=== PATIENT | male | born 1975 | race Caucasian/White ===

== ENCOUNTER 2021-10-21 11:53 | Emergency (ER) | payer OTHER ==
--- OUTSIDE RECORDS SUMMARY | 2021-10-21 11:56 | XMS REPORT | Continuity of Care Document ---
:1975 Author Organization [facility] t Address [address] [place] [address] Care Team Providers Name Role Phone [place] Attending Clinician Unavailable Problems This patient has no known problems. Allergies, Adverse Reactions, Alerts This patient has no known allergies or adverse reactions. Medications Ordered Filled Start Stop Current Ordering Indication Dosage Frequency Signature Comments Components Source Medication Medication Date Date Medication? Clinician (SIG) Name Name BuPROPion BuPROPion 2019- Yes Starr [address] [facility] HCl HCl 0-08 [place] [facility] [address] [facility] ne ne 7-11 [place] applicatio [facility] - Acetonide Acetonide 00:00: n to Mem oria 00 affected l area [facility] Furosemide Furosemide Yes Starr [address] [facility] [place] [facility] Metoprolol Metoprolol Yes Starr [address] [facility] Tartrate Tartrate [place] with food [facility] Levothyroxi Levothyroxi Yes Starr [address] [facility] ne Sodium ne Sodium [place] on an Ava es - empty Memoria stomach in l the [facility] Procedures This patient has no known procedures. Encounters Start End Encounter Admission Attending Care Care Encounter Source Date/Time Date/Time Type Type Clinicians Facility Department ID 2021-08-26 Outpatient SALLY Valladares [facility] [id number] [facility] 13[facility]01 [facility] 2021-06-14 2021-06-14 ambulatory [facility] [id number] [facility] 2020-12-09 2020-12-09 Outpatient [facility] [id number] [facility] 2020-03-27 2020-03-27 [facility] [id number] [facility] 08:20:00 08:20:00 [facility] 2019-11-19 2019-11-19 [facility] [id number] [facility] 13:00:00 13:00:00 [facility] 2019-09-19 2019-09-19 [facility] [id number] [facility] 09:41:00 09:41:00 [facility] 2019-09-18 2019-09-18 [facility] [id number] [facility] 10:40:00 10:40:00 [facility] 2019-06-18 2019-06-18 [facility] [id number] [facility] 14:00:00 14:00:00 [facility] 2019-04-23 2019-04-23 [facility] [id number] [facility] 09:40:00 09:40:00 [facility] 2019-03-08 2019-03-08 [facility] [id number] [facility] 13:32:00 13:32:00 [facility] 2019-03-07 2019-03-07 [facility] [id number] [facility] 08:40:00 08:40:00 [facility] 2019-01-24 2019-01-24 Outpatient Kasey Toney [id number] [facility] 14:20:00 14:20:00 [facility] 2018-06-19 2018-06-19 Outpatient Kasey Toney [id number] [facility] 13:10:00 13:10:00 [facility] Results This patient has no known results.
[2021-10-21] MEDS ORDERED: FENTANYL CITR 100 MCG/2 ML ONE (12:45)
[2021-10-21 13:02] LABS: Absolute Lymphocytes (CBC) 1.3 K/uL (0.7-4.9); Hematocrit 44.2 % (39.6-49.0); Lymphocytes % 15.8 % (15.3-44.8); MPV 7.6 fL (7.6-11.3); RBC Red Blood Cell Count 5.36 M/uL (4.33-5.43)
[2021-10-21 13:12] LABS: Protime INR 1.16
--- NOTE | 2021-10-21 13:45 | RAD REPORT ---
EXAM DESCRIPTION: RAD - Chest Single View - 10/21/2021 1:38 pm CLINICAL HISTORY: SWELLING, shortness of breath COMPARISON: Portable December 2013 TECHNIQUE: AP portable chest image was obtained 10/21/2021 1:38 pm . FINDINGS: Exam is limited by affects of portable technique and large body habitus. No peripheral mass or consolidation identifiable. Interstitial markings are prominent. Cardiomegaly i s present with vascular engorgement, both increased over comparison. No measurable pleural effusion a nd no pneumothorax. No acute bony abnormality seen. No acute aortic findings suspected. IMPRESSION: Limited portable study showing mild CHF/volume overload findings.
[2021-10-21 14:06] LABS: Potassium 4.4 mmol/L (3.5-5.1)
[2021-10-21 14:07] LABS: Bilirubin Direct 0.2 mg/dL (0-0.2); Bilirubin Total 0.7 mg/dL (0.2-1.0); Magnesium 2.2 mg/dL (1.8-2.4); Protein, Total 8.8 g/dL (6.4-8.2)
--- NOTE | 2021-10-21 15:15 | RAD REPORT ---
EXAM DESCRIPTION: US - Extrem Venous W Compress Burke - 10/21/2021 2:50 pm CLINICAL HISTORY: PAIN COMPARISON: None. TECHNIQUE: Real-time sonographic evaluation of the bilateral lower extremity common femoral, superfi cial femoral, popliteal and posterior tibial veins was performed. FINDINGS: Normal compressibility, flow augmentation, phasic flow and spontaneous flow are identified in the left and right lower extremity common femoral, superficial femoral, popliteal and posterior t ibial veins. No intraluminal filling defects seen. Exam at technical limitation due to body habitus. IMPRESSION: No DVT in either lower extremity.
[2021-10-21] MEDS ORDERED: DOXYCYCLINE 100 MG CAP PO ONE (16:16)
[2021-10-21] MEDS ORDERED: SMZ./TMP. 800/160 MG TABLET ONE (16:16)
--- NOTE | 2021-10-21 16:41 | EDPHYS ---
Physician Documentation [facility] Name: Eliseo Larson Jr Age: 46 yrs Sex: Male : 1975 Arrival Date: 10/21/2021 Time: 11:54 Bed 5 Private MD: ED Physician Yordan Villeda HPI: 10/21 12:45 This 46 yrs old Male presents to ER via Wheelchair with complaints of Leg Pain, Leg cp Swelling. 12:45 The patient presents with pain, swelling. cp 12:45 The complaints affect the left lower leg. Onset: The symptoms/episode began/occurred cp gradually, and became worse yesterday. Associated signs and symptoms: Pertinent positives: drainage from leg, Pertinent negatives fever, shortness of breath, chest pain. Treatment prior to arrival includes: no previous treatment. Severity of symptoms: in the emergency department the symptoms are unchanged, despite home interventions. Historical: - Allergies: 12:17 No Known Allergies; ab2 - PMHx: 12:17 Hypertensive disorder; Congestive heart failure; Hypothyroidism; ab2 - PSHx: 12:17 Tracheostomy; ab2 - Immunization history:: Adult Immunizations up to date. - Social history:: Smoking status: Patient denies any tobacco usage or history of. ROS: 12:50 MS/extremity: Positive for pain, swelling, tenderness, Negative for injury or acute cp deformity. 12:50 Constitutional: Negative for body aches, chills, fever, poor PO intake. cp 12:50 Cardiovascular: Negative for chest pain, edema, palpitations. 12:50 Respiratory: Negative for cough, shortness of breath, wheezing. 12:50 Abdomen/GI: Negative for abdominal pain, nausea, vomiting, and diarrhea. 12:50 Neuro: Negative for altered mental status, headache, weakness. 12:50 All other systems are negative. Exam: 12:55 Constitutional: The patient appears in no acute distress, alert, awake, cp non-diaphoretic, non-toxic, well developed, well nourished, obese. 12:55 Head/Face: Normocephalic, atraumatic. cp 12:55 Eyes: Periorbital structures: appear normal, Conjunctiva: normal, no exudate, no injection, Sclera: no appreciated abnormality, Lids and lashes: appear normal, bilaterally. 12:55 ENT: External ear(s): are unremarkable, Nose: is normal, Mouth: Lips: moist, Oral mucosa: moist, Posterior pharynx: Airway: no evidence of obstruction, patent. 12:55 Chest/axilla: Inspection: normal. 12:55 Cardiovascular: Rate: normal, Rhythm: regular, Edema: pedal edema, that is moderate, ankle edema, that is moderate, JVD: is not appreciated. 12:55 Respiratory: the patient does not display signs of respiratory distress, Respirations: normal, no use of accessory muscles, no retractions, labored breathing, is not present, Breath sounds: bronchial sounds, are not appreciated, decreased breath sounds, are not appreciated, wheezing: is not appreciated. 12:55 Abdomen/GI: Exam negative for discomfort, distension, guarding, Inspection: obese 12:55 Musculoskeletal/extremity: swelling noted bilateral lower legs. 12:55 Skin: skin discoloration, mild erythema, skin warm to touch left lower leg. Serosanguinous drainage noted with superficial wound noted to lateral lower leg. 12:55 Neuro: Orientation: to person, place \\T\\ time. Mentation: is normal, Motor: moves all fours, strength is normal, Gait: is steady, at a normal pace, without difficulty. 13:00 ECG was reviewed by the Attending Physician. cp Vital Signs: 12:15 BP 144 / 88; Pulse 68; Resp 22; Temp 98.5; Pulse Ox 98% on R/A; Weight 226.8 kg; Height ab2 6 ft. 2 in. (187.96 cm); Pain 8/10; 14:47 Pulse 71; Pulse Ox 97% on R/A; ap3 14:54 BP 124 / 72; ap3 12:15 Body Mass Index 64.20 (226.80 kg, 187.96 cm) ab2 MDM: 12:36 Patient medically screened. cp 16:40 Data reviewed: vital signs, nurses notes, lab test result(s), EKG, radiologic studies, cp plain films, ultrasound. 16:40 Test interpretation: by ED physician or midlevel provider: ECG, plain radiologic cp studies. Counseling: I had a detailed discussion with the patient and/or guardian regarding: the historical points, exam findings, and any diagnostic results supporting the discharge/admit diagnosis, lab results, radiology results, the need for outpatient follow up, for definitive care, a family practitioner, wound care, to return to the emergency department if symptoms worsen or persist or if there are any questions or concerns that arise at home. Response to treatment: the patient's symptoms have mildly improved after treatment, and as a result, I will discharge patient. ED course: VSS. Patient appears non-toxic and no signs of respiratory distress. Wound Care consulted and lower legs cleaned and dressed. 10/21 12:39 Order name: Basic Metabolic Panel; Complete Time: 14:21 cp 10/21 14:21 Interpretation: Normal except: BUN 21; GFR 68; CA 8.2. cp 10/21 12:39 Order name: CBC with Diff; Complete Time: 13:51 cp 10/21 13:51 Interpretation: Normal except: MCV 82.5; MCH 25.9; MCHC 31.3; RDW 17.0; EOSINOPHIL % cp 5.4. 10/21 12:39 Order name: LFT's; Complete Time: 14:21 cp 10/21 14:21 Interpretation: Normal except: TP 8.8; ALB 3.0; GLOB 5.8; A/G 0.5. cp 10/21 12:39 Order name: Magnesium; Complete Time: 14:21 cp 10/21 12:39 Order name: NT PRO-BNP; Complete Time: 14:21 cp 10/21 12:39 Order name: PT-INR; Complete Time: 13:51 cp 10/21 12:39 Order name: XRAY Chest (1 view); Complete Time: 13:51 cp 10/21 12:39 Order name: Procalcitonin; Complete Time: 14:21 cp 10/21 12:52 Order name: COVID-19 SARS RT PCR (Document "Date of Onset" if Symptomatic); Complete em1 Time: 14:21 10/21 13:52 Order name: US Extremity Venous W Compression Burke; Complete Time: 15:43 cp 10/21 12:39 Order name: EKG; Complete Time: 12:40 cp 10/21 12:39 Order name: Cardiac monitoring; Complete Time: 12:52 cp 10/21 12:39 Order name: EKG - Nurse/Tech; Complete Time: 12:53 cp 10/21 12:39 Order name: IV Saline Lock; Complete Time: 12:53 cp 10/21 12:39 Order name: Labs collected and sent; Complete Time: 12:53 cp 10/21 12:39 Order name: O2 Per Protocol; Complete Time: 12:53 cp 10/21 12:39 Order name: O2 Sat Monitoring; Complete Time: 12:53 cp 10/21 14:54 Order name: [facility] EDMS EC:00 Rate is 66 beats/min. Rhythm is regular. NH interval is normal. QRS interval is cp prolonged at 104 msec. QT interval is normal. T waves are Inverted in lead aVR. Interpreted by me. Reviewed by me. Administered Medications: 12:53 Drug: fentaNYL (PF) 25 mcg Route: IVP; Site: right antecubital; jl7 14:40 Follow up: Response: No adverse reaction ap3 14:46 Drug: Lasix (furosemide) 40 mg Route: IVP; Site: right antecubital; ap3 16:18 Follow up: Response: No adverse reaction ap3 16:18 Drug: Bactrim (trimethoprim-sulfamethoxazole) (160 mg-800 mg (DS) 2 tabs Route: PO; ap3 16:30 Follow up: Response: Medication administered at discharge. jl7 16:18 Drug: Doxycycline 200 mg Route: PO; ap3 16:30 Follow up: Response: Medication administered at discharge. jl7 Disposition: 17:11 Co-signature as Attending Physician, Yordan Villeda MD I agree with the assessment and kdr plan of care. Disposition Summary: 10/21/21 16:41 Discharge Ordered Location: Home cp Problem: new cp Symptoms: have improved cp Condition: Stable cp Diagnosis - Lymphedema, not elsewhere classified cp - Cellulitis of left lower limb cp Followup: cp - With: Private Physician - When: 1 - 2 days - Reason: Recheck today's complaints Discharge Instructions: - Discharge Summary Sheet cp - Cellulitis, Adult cp - Lymphedema cp Forms: - Medication Reconciliation Form cp - Thank You Letter cp - Antibiotic Education cp - Prescription Opioid Use cp Prescriptions: - Doxycycline Hyclate 100 mg Oral Tablet - take 1 tablet by ORAL route every 12 hours; 20 tablet; Refills: 0, Product cp Selection Permitted - Bactrim DS 800-160 mg Oral Tablet - take 1 tablet by ORAL route every 12 hours for 10 days; 20 tablet; Refills: 0, cp Product Selection Permitted - Tylenol-Codeine #3 300 mg-30 mg Oral - take 2 tablet by ORAL route every 8-10 hours As needed; 15 tablet; Refills: 0, cp Product Selection Permitted Signatures: Dispatcher [employer] Yordan Dove MD MD kdr Page, Corey, PA PA cp Leal, Jahala RN RN jl7 Eboni Joyner RN RN ap3 Dirk Bolaños ab2 Corrections: (The following items were deleted from the chart) 12:19 12:17 PSHx: Tracheotomy; ab2 ab2
--- NOTE | 2021-10-21 16:41 | ER ---
Nurse's Notes [facility] Name: Eliseo Larson Jr Age: 46 yrs Sex: Male : 1975 Arrival Date: 10/21/2021 Time: 11:54 Bed 5 Private MD: Diagnosis: Lymphedema, not elsewhere classified;Cellulitis of left lower limb Presentation: 10/21 12:15 Chief complaint: Patient states: "I noticed my left leg had been swelling for a couple ab2 weeks and yesterday I was in the shower and noticed some bumps. Well today I was sitting there and noticed my pant legs were soaked." Pt has draining wound noted to left scott. Coronavirus screen: Vaccine status: Patient reports being unvaccinated. Client denies travel out of the [place] in the last 14 days. At this time, the client does not indicate any symptoms associated with coronavirus-19. Ebola Screen: Patient negative for fever greater than or equal to 101.5 degrees Fahrenheit, and additional compatible Ebola Virus Disease symptoms Patient denies exposure to infectious person. Patient denies travel to an Ebola-affected area in the 21 days before illness onset. No symptoms or risks identified at this time. Initial Sepsis Screen: Does the patient meet any 2 criteria? RR > 20 per min. Does the patient have a suspected source of infection? No. Patient's initial sepsis screen is negative. Risk Assessment: Do you want to hurt yourself or someone else? Patient reports no desire to harm self or others. Onset of symptoms is unknown. 12:15 Method Of Arrival: Wheelchair ab2 12:15 Acuity: JUNG 3 ab2 Triage Assessment: 12:19 General: Appears in no apparent distress. uncomfortable, Behavior is calm, cooperative, ab2 appropriate for age. Pain: Complains of pain in left scott Pain currently is 8 out of 10 on a pain scale. 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 Respiratory: Airway via trache Respiratory effort is even, unlabored, Respiratory pattern is regular, symmetrical. GI: No deficits noted. Derm: Reports Wound to left scott. Historical: - Allergies: 12:17 No Known Allergies; ab2 - PMHx: 12:17 Hypertensive disorder; Congestive heart failure; Hypothyroidism; ab2 - PSHx: 12:17 Tracheostomy; ab2 - Immunization history:: Adult Immunizations up to date. - Social history:: Smoking status: Patient denies any tobacco usage or history of. Screenin:45 Abuse screen: Denies threats or abuse. Denies injuries from another. Nutritional jl7 screening: No deficits noted. Tuberculosis screening: No symptoms or risk factors identified. Fall Risk IV access (20 points). Assessment: 12:45 General: Appears in no apparent distress. uncomfortable, Behavior is calm, cooperative, jl7 appropriate for age. Pain: Complains of pain in left leg Pain currently is 8 out of 10 on a pain scale. Pain began x2 weeks. Neuro: Level of Consciousness is awake, alert, obeys commands, Oriented to person, place, time, situation. Cardiovascular: Denies chest pain, Patient's skin is warm and dry. Respiratory: Airway is patent Respiratory effort is even, unlabored, Respiratory pattern is regular, symmetrical, Denies shortness of breath. Derm: Skin is pink, warm \\T\\ dry. Musculoskeletal: redness and swelling noted to bilateral lower extremities. 14:46 Reassessment: Patient and/or family updated on plan of care and expected duration. Pain ap3 level reassessed. Patient is alert, oriented x 3, equal unlabored respirations, skin warm/dry/pink. patient in bed, bed is locked in lowest position, side rails up X's one. patient provided with urinal to limit risk of falls. patient has call light within reach, and reports no questions or concerns at this time. Vital Signs: 12:15 BP 144 / 88; Pulse 68; Resp 22; Temp 98.5; Pulse Ox 98% on R/A; Weight 226.8 kg; Height ab2 6 ft. 2 in. (187.96 cm); Pain 8/10; 14:47 Pulse 71; Pulse Ox 97% on R/A; ap3 14:54 BP 124 / 72; ap3 12:15 Body Mass Index 64.20 (226.80 kg, 187.96 cm) ab2 ED Course: 11:54 Patient arrived in ED. as 12:17 Triage completed. ab2 12:21 Arm band placed on right wrist. ab2 12:31 Bubba Ruggiero PA is PHCP. cp 12:31 Yordan Villeda MD is Attending Physician. cp 12:32 Swapnil San, RN is Primary Nurse. jl7 12:44 Inserted saline lock: 20 gauge in right antecubital area, using aseptic technique. ap3 Blood collected. 12:45 Patient has correct armband on for positive identification. Bed in low position. Call jl7 light in reach. Side rails up X 1. 12:45 Initial lab(s) drawn, by ED staff, sent to lab. EKG done, by ED staff, reviewed by gabriel BORJAS. 13:09 COVID-19 SARS RT PCR (Document "Date of Onset" if Symptomatic) Sent. em1 13:40 XRAY Chest (1 view) In Process Unspecified. EDMS 14:52 US Extremity Venous W Compression Burke In Process Unspecified. EDMS 17:08 No provider procedures requiring assistance completed. IV discontinued, intact, ss bleeding controlled, No redness/swelling at site. Administered Medications: 12:53 Drug: fentaNYL (PF) 25 mcg Route: IVP; Site: right antecubital; jl7 14:40 Follow up: Response: No adverse reaction ap3 14:46 Drug: Lasix (furosemide) 40 mg Route: IVP; Site: right antecubital; ap3 16:18 Follow up: Response: No adverse reaction ap3 16:18 Drug: Bactrim (trimethoprim-sulfamethoxazole) (160 mg-800 mg (DS) 2 tabs Route: PO; ap3 16:30 Follow up: Response: Medication administered at discharge. jl7 16:18 Drug: Doxycycline 200 mg Route: PO; ap3 16:30 Follow up: Response: Medication administered at discharge. jl7 Outcome: 16:41 Discharge ordered by . cp 17:08 Discharged to home ambulatory. ss 17:08 Condition: good 17:08 Discharge instructions given to patient, family, Instructed on discharge instructions, follow up and referral plans. medication usage, Demonstrated understanding of instructions, follow-up care, medications, Prescriptions given X 3. 17:09 Patient left the ED. ss Signatures: Dispatcher [employer] EDMS Yi Basilio Eric em1 Jessie Savage RN RN Bubba Ruggiero PA PA cp Leal, Jahala, RN RN jl7 Eboni Joyner RN RN ap3 Dirk Bolaños ab2 Corrections: (The following items were deleted from the chart) 19 12:17 PSHx: Tracheotomy; ab2 ab2
[2021-10-21 20:57] VITALS: TEMP 98.5
[2021-10-21 20:58] VITALS: O2SAT 97
[2021-10-21 20:59] VITALS: BP 124/72
--- NOTE | 2021-10-22 07:47 | EKG ---
Test Date: 2021-10-21 Test Time: 12:50:05 Director Stage: YOANA MEASUREMENT RESULTS: Intervals: Rate: 66 FL: 178 QRSD: 104 QT: 458 QTc: 480 [place]: P: 39 FL: 178 QRS: 75 T: 47 INTERPRETIVE STATEMENTS: Normal sinus rhythm Incomplete right bundle branch block Prolonged QT Abnormal ECG Compared to ECG 08/22/2013 12:47:50 Right ventricular hypertrophy no longer present ST (T wave) deviation no longer present Electronically Signed On 10-22-21 07:46:07 CDT by Darian Castillo
== END 2021-10-21 17:09 | disposition home or self-care (01) ==
LOC: ER 11:53
DX: L03.116 Cellulitis of left lower limb (principal); I89.0 Lymphedema, not elsewhere classified; I50.9 Heart failure, unspecified; I10 Essential (primary) hypertension; Z20.822 Contact with and (suspected) exposure to COVID-19
CPT/HCPCS: 93005; 85025; 80048; 36415; 83735; 85610; 80076; 84145; 83880; 71045; 93970; 99251; 96375; 96374; 99284; U0003; J3010

== ENCOUNTER 2023-08-06 21:30 | Inpatient (IN) | payer OTHER ==
--- OUTSIDE RECORDS SUMMARY | 2023-08-06 21:35 | XMS REPORT | Continuity of Care Document ---
Author Name Unknown Address [address] [facility] [place] [address] [facility] thconnect Address [address] [facility] [address] [place] [address] Care Team Providers Care Seafood Packer Name Role Phone Starr Valladares Attending Clinician Unavailable CHRETIEN_F Attending Clinician Unavailable CHRETIEN_F Admitting Clinician Unavailable Payers Payer Name Policy Type Policy Number Effective Date Expirati on Date Source MEDICARE [place]: TOMASZ ALLEN [facility] - FQ [id number] 2015 00:00:00 [facility] [id number] 2015 00:00:00 [facility] [id number] 2015 00:00:00 [facility] Problems Condition Name Condition Details Condition Category Status Onset Date Resolution Date Last Treatment Date Treating Clinician Comments Source Vitamin D deficiency Vitamin D Deficiency Problem Active 02-20 00:00: 00 [facility] Essential hypertensi on Essential Hypertensi on Problem Active 01-31 00:00: 00 [facility] Cardiac arrhythmia Cardiac Arrhythmia Problem Active 01-31 00:00: 00 [facility] Edema of lower extremity Edema of Lower Extremity Problem Active 01-31 00:00: 00 [facility] Hypothyroi dism Hypothyroi dism Problem Active 01-31 00:00: 00 [facility] Anxiety disorder Anxiety Disorder Problem Active 01-31 00:00: 00 [facility] Depressive disorder Depressive Disorder Problem Active 01-31 00:00: 00 [facility] Central sleep apnea syndrome Central Sleep Apnea Syndrome Problem Active 01-31 00:00: 00 [facility] History of tracheosto my Tracheosto my dependent Problem Active [facility] [id number] Psoriasis Problem Active Commo n [facility] [id number] Current moderate episode of major depressive disorder without prior episode Problem Active [facility] [id number] Tracheosto my dependence Problem Active [facility] Extreme obesity with alveolar hypoventil ation Morbid (severe) obesity with alveolar hypoventil ation Problem Active [facility] Chronic diastolic heart failure Diastolic CHF Problem Active [facility] Obstructiv e sleep apnea Obstructiv e sleep apnea Problem Active [facility] [id number] Non-pressu re chronic ulcer of unspecifie d part of unspecifie d lower leg with unspecifie d severity Problem Active [facility] [id number] Peripheral vascular disease, unspecifie d Problem Active [facility] [id number] Lymphatic edema Problem Active [facility] Social History Social Habit Start Date Stop Date Quantity Comments Source History of Tobacco Use [facility] Sex Assigned At [facility] Smoking Status Start Date Stop Date Source Never Smoker [facility] Medications Ordered Medication Name Filled Medication Name Start Date Stop Date Current Medication? Ordering Clinician Indication Dosage Frequency Signature (SIG) Comments Components Source metoprolol tartrate 50 mg tablet TAKE 1 TABLET BY MOUTH TWICE DAILY metoprolol tartrate 50 mg tablet TAKE 1 TABLET BY MOUTH TWICE DAILY 02-20 00:00: 00 No metoprolol tartrate 50 mg tablet TAKE 1 TABLET BY MOUTH TWICE DAILY [facility] Betamethaso ne Dipropionat e 0.05 % Betamethaso ne Dipropionat e 0.05 % 2020-07 00:00: 00 08-29 00:00 :00 No 1{appli cation} QD Betamethas one Dipropiona te 0.05 % BuPROPion HCl BuPROPion HCl 2018-07 00:00: 00 Yes Starr [place] 2 tablets [facility] BuPROPion HCl 100 MG BuPROPion HCl 100 MG 2018-07 00:00: 00 No 2{table ts} BID BuPROPion HCl 100 MG Triamcinolo ne Acetonide Triamcinolo ne Acetonide 01-24 00:00: 00 Yes Starr [place] 1 applicatio n to affected area [facility] Triamcinolo ne Acetonide 0.1 % Triamcinolo ne Acetonide 0.1 % 01-24 00:00: 00 No 1{appli cation_ to_affe cted_ar ea} BID Triamcinol one Acetonide 0.1 % spironolact one 50 mg tablet TAKE 1 TABLET BY MOUTH ONCE DAILY spironolact one 50 mg tablet TAKE 1 TABLET BY MOUTH ONCE DAILY No spironolac tone 50 mg tablet TAKE 1 TABLET BY MOUTH ONCE DAILY [facility] furosemide 40 mg tablet Take 1 tablet twice a day by oral route as directed for 30 days. furosemide 40 mg tablet Take 1 tablet twice a day by oral route as directed for 30 days. No 1 BID furosemide 40 mg tablet Take 1 tablet twice a day by oral route as directed for [address] [facility] levothyroxi ne 175 mcg tablet Take 1 tablet every day by oral route for 30 days. levothyroxi ne 175 mcg tablet Take 1 tablet every day by oral route for 30 days. No 1 Q1D levothyrox ine 175 mcg tablet Take 1 tablet every day by oral route for [address] [facility] metoprolol tartrate 50 mg tablet Take 1 tablet twice a day by oral route for 30 days. metoprolol tartrate 50 mg tablet Take 1 tablet twice a day by oral route for 30 days. No 1 BID metoprolol tartrate 50 mg tablet Take 1 tablet twice a day by oral route for [address] [facility] spironolact one 50 mg tablet Take 1 tablet every day by oral route for 30 days. spironolact one 50 mg tablet Take 1 tablet every day by oral route for 30 days. No 1 Q1D spironolac tone 50 mg tablet Take 1 tablet every day by oral route for [address] [facility] Furosemide Furosemide Yes Starr [place] 2 tablets [facility] Metoprolol Tartrate Metoprolol Tartrate Yes [place] 1 tablet with food [facility] Levothyroxi ne Sodium Levothyroxi ne Sodium Yes [place] 1 tablet on an empty stomach in the morning [facility] Levothyroxi ne Sodium 150 MCG Levothyroxi ne Sodium 150 MCG No Levothyrox ine Sodium 150 MCG Furosemide 40 MG Furosemide 40 MG No QD Furosemide 40 MG Metoprolol Tartrate 50 MG Metoprolol Tartrate 50 MG No 1{table t_with_ food} BID Metoprolol Tartrate 50 MG buPROPion HCl 100 MG buPROPion HCl 100 MG No buPROPion HCl 100 MG Spironolact one 50 MG Spironolact one 50 MG No 1{table t} QD Spironolac tone 50 MG Levothyroxi ne Sodium 150 MCG Levothyroxi ne Sodium 150 MCG No Levothyrox ine Sodium 150 MCG Furosemide 40 MG Furosemide 40 MG No QD Furosemide 40 MG Metoprolol Tartrate 50 MG Metoprolol Tartrate 50 MG No 1{table t_with_ food} BID Metoprolol Tartrate 50 MG buPROPion HCl 100 MG buPROPion HCl 100 MG No buPROPion HCl 100 MG Spironolact one 50 MG Spironolact one 50 MG No 1{table t} QD Spironolac tone 50 MG Metoprolol Tartrate 50 MG Metoprolol Tartrate 50 MG No Metoprolol Tartrate 50 MG Levothyroxi ne Sodium 125 MCG Levothyroxi ne Sodium 125 MCG No QD Levothyrox ine Sodium 125 MCG Spironolact one 50 MG Spironolact one 50 MG No Spironolac tone 50 MG Furosemide 40 MG Furosemide 40 MG No 2{table ts} QD Furosemide 40 MG Furosemide 40 MG Furosemide 40 MG No QD Furosemide 40 MG Levothyroxi ne Sodium 137 MCG Levothyroxi ne Sodium 137 MCG No QD Levothyrox ine Sodium 137 MCG Spironolact one 50 MG Spironolact one 50 MG No 1{table t} QD Spironolac tone 50 MG Metoprolol Tartrate 50 MG Metoprolol Tartrate 50 MG No BID Metoprolol Tartrate 50 MG buPROPion HCl 100 MG buPROPion HCl 100 MG No buPROPion HCl 100 MG Spironolact one 50 MG Spironolact one 50 MG No 1{table t} QD Spironolac tone 50 MG Levothyroxi ne Sodium 137 MCG Levothyroxi ne Sodium 137 MCG No QD Levothyrox ine Sodium 137 MCG Metoprolol Tartrate 50 MG Metoprolol Tartrate 50 MG No BID Metoprolol Tartrate 50 MG buPROPion HCl 100 MG buPROPion HCl 100 MG No buPROPion HCl 100 MG Furosemide 40 MG Furosemide 40 MG No QD Furosemide 40 MG Spironolact one 50 MG Spironolact one 50 MG No 1{table t} QD Spironolac tone 50 MG Levothyroxi ne Sodium 137 MCG Levothyroxi ne Sodium 137 MCG No QD Levothyrox ine Sodium 137 MCG Metoprolol Tartrate 50 MG Metoprolol Tartrate 50 MG No BID Metoprolol Tartrate 50 MG buPROPion HCl 100 MG buPROPion HCl 100 MG No buPROPion HCl 100 MG Furosemide 40 MG Furosemide 40 MG No QD Furosemide 40 MG Spironolact one 50 MG Spironolact one 50 MG No 1{table t} QD Spironolac tone 50 MG Levothyroxi ne Sodium 137 MCG Levothyroxi ne Sodium 137 MCG No QD Levothyrox ine Sodium 137 MCG Metoprolol Tartrate 50 MG Metoprolol Tartrate 50 MG No BID Metoprolol Tartrate 50 MG buPROPion HCl 100 MG buPROPion HCl 100 MG No buPROPion HCl 100 MG Furosemide 40 MG Furosemide 40 MG No QD Furosemide 40 MG Spironolact one 50 MG Spironolact one 50 MG No 1{table t} QD Spironolac tone 50 MG Levothyroxi ne Sodium 137 MCG Levothyroxi ne Sodium 137 MCG No QD Levothyrox ine Sodium 137 MCG Metoprolol Tartrate 50 MG Metoprolol Tartrate 50 MG No BID Metoprolol Tartrate 50 MG buPROPion HCl 100 MG buPROPion HCl 100 MG No buPROPion HCl 100 MG Furosemide 40 MG Furosemide 40 MG No QD Furosemide 40 MG Spironolact one 50 MG Spironolact one 50 MG No 1{table t} QD Spironolac tone 50 MG Furosemide 40 MG Furosemide 40 MG No QD Furosemide 40 MG Metoprolol Tartrate 50 MG Metoprolol Tartrate 50 MG No BID Metoprolol Tartrate 50 MG buPROPion HCl 100 MG buPROPion HCl 100 MG No buPROPion HCl 100 MG Levothyroxi ne Sodium 150 MCG Levothyroxi ne Sodium 150 MCG No QD Levothyrox ine Sodium 150 MCG Levothyroxi ne Sodium 150 MCG Levothyroxi ne Sodium 150 MCG No Levothyrox ine Sodium 150 MCG Furosemide 40 MG Furosemide 40 MG No QD Furosemide 40 MG Metoprolol Tartrate 50 MG Metoprolol Tartrate 50 MG No 1{table t_with_ food} BID Metoprolol Tartrate 50 MG buPROPion HCl 100 MG buPROPion HCl 100 MG No buPROPion HCl 100 MG Spironolact one 50 MG Spironolact one 50 MG No 1{table t} QD Spironolac tone 50 MG furosemide 40 mg tablet Take 1 tablet twice a day by oral route as directed for 30 days. furosemide 40 mg tablet Take 1 tablet twice a day by oral route as directed for 30 days. No 1 BID furosemide 40 mg tablet Take 1 tablet twice a day by oral route as directed for [address] [facility] levothyroxi ne 150 mcg tablet Take 1 tablet every day by oral route. levothyroxi ne 150 mcg tablet Take 1 tablet every day by oral route. No 1 Q1D levothyrox ine 150 mcg tablet Take 1 tablet every day by oral route. [facility] metoprolol tartrate 50 mg tablet Take 1 tablet twice a day by oral route for 30 days. metoprolol tartrate 50 mg tablet Take 1 tablet twice a day by oral route for 30 days. No 1 BID metoprolol tartrate 50 mg tablet Take 1 tablet twice a day by oral route for [address] [facility] spironolact one 50 mg tablet Take 1 tablet every day by oral route for 30 days. spironolact one 50 mg tablet Take 1 tablet every day by oral route for 30 days. No 1 Q1D spironolac tone 50 mg tablet Take 1 tablet every day by oral route for [address] [facility] furosemide 40 mg tablet Take 1 tablet twice a day by oral route as directed for 30 days. furosemide 40 mg tablet Take 1 tablet twice a day by oral route as directed for 30 days. No 1 BID furosemide 40 mg tablet Take 1 tablet twice a day by oral route as directed for [address] [facility] levothyroxi ne 150 mcg tablet Take 1 tablet every day by oral route. levothyroxi ne 150 mcg tablet Take 1 tablet every day by oral route. No 1 Q1D levothyrox ine 150 mcg tablet Take 1 tablet every day by oral route. [facility] metoprolol tartrate 50 mg tablet Take 1 tablet twice a day by oral route for 30 days. metoprolol tartrate 50 mg tablet Take 1 tablet twice a day by oral route for 30 days. No 1 BID metoprolol tartrate 50 mg tablet Take 1 tablet twice a day by oral route for [address] [facility] spironolact one 50 mg tablet Take 1 tablet every day by oral route for 30 days. spironolact one 50 mg tablet Take 1 tablet every day by oral route for 30 days. No 1 Q1D spironolac tone 50 mg tablet Take 1 tablet every day by oral route for [address] [facility] furosemide 40 mg tablet Take 1 tablet twice a day by oral route as directed for 30 days. furosemide 40 mg tablet Take 1 tablet twice a day by oral route as directed for 30 days. No 1 BID furosemide 40 mg tablet Take 1 tablet twice a day by oral route as directed for [address] [facility] levothyroxi ne 150 mcg tablet Take 1 tablet every day by oral route. levothyroxi ne 150 mcg tablet Take 1 tablet every day by oral route. No 1 Q1D levothyrox ine 150 mcg tablet Take 1 tablet every day by oral route. [facility] metoprolol tartrate 50 mg tablet Take 1 tablet twice a day by oral route for 30 days. metoprolol tartrate 50 mg tablet Take 1 tablet twice a day by oral route for 30 days. No 1 BID metoprolol tartrate 50 mg tablet Take 1 tablet twice a day by oral route for [address] [facility] spironolact one 50 mg tablet Take 1 tablet every day by oral route for 30 days. spironolact one 50 mg tablet Take 1 tablet every day by oral route for 30 days. No 1 Q1D spironolac tone 50 mg tablet Take 1 tablet every day by oral route for [address] [facility] furosemide 40 mg tablet TAKE 1 TABLET BY MOUTH TWICE DAILY DIRECTED furosemide 40 mg tablet TAKE 1 TABLET BY MOUTH TWICE DAILY DIRECTED No furosemide 40 mg tablet TAKE 1 TABLET BY MOUTH TWICE DAILY DIRECTED [facility] levothyroxi ne 175 mcg tablet Take 1 tablet every day by oral route for 30 days. levothyroxi ne 175 mcg tablet Take 1 tablet every day by oral route for 30 days. No 1 Q1D levothyrox ine 175 mcg tablet Take 1 tablet every day by oral route for [address] [facility] Vital Signs Vital Name Observation Time Observation Value Comments S ource BMI (Body Mass Index) 2023-05-30 00:00:00 66.7 kg/m2 [facility] BP Diastolic 2023-05-30 00:00:00 97 mm[Hg] [facility] Body Weight 2023-05-30 00:00:00 8313.6 [oz_av] [facility] Height 2023-05-30 00:00:00 74 [in_i] [facility] BP Systolic 2023-05-30 00:00:00 154 mm[Hg] [facility] BP Systolic 2023-02-20 00:00:00 192 mm[Hg] [facility] BP Diastolic 2023-02-20 00:00:00 102 mm[Hg] [facility] Height 2023-02-20 00:00:00 74 [in_i] [facility] BP Diastolic 2023-01-31 00:00:00 93 mm[Hg] [facility] Height 2023-01-31 00:00:00 74 [in_i] [facility] BMI (Body Mass Index) 2023-01-31 00:00:00 70.4 kg/m2 [facility] BP Systolic 2023-01-31 00:00:00 163 mm[Hg] [facility] Body Weight 2023-01-31 00:00:00 8777.6 [oz_av] [facility] height 2021-10-26 16:40:00 74 [in_i] [facility] weight 2021-10-26 16:40:00 480 [lb_av] [facility] bmi 2021-10-26 16:40:00 61.62 kg/m2 [facility] height 2020-12-09 11:00:00 74 [in_i] [facility] weight 2020-12-09 11:00:00 [facility] temperature 2020-12-09 11:00:00 98.1 [degF] Com [facility] bmi 2020-12-09 11:00:00 61.62 kg/m2 [facility] oximetry 2020-12-09 11:00:00 93 % Commo [facility] blood pressure systolic 2020-12-09 11:00:00 145 mm[Hg] [facility] blood pressure diastolic 2020-12-09 11:00:00 85 mm[Hg] [facility] Plan of Care Planned Activity Planned Date Details Comments Source Diagnostic Test Pending 2023-05-30 00:00:00 TSH + free T4, serum [code = TSH + free T4, serum] [facility] Diagnostic Test Pending 2023-05-30 00:00:00 CMP, serum or plasma [code = CMP, serum or plasma] [facility] Diagnostic Test Pending 2023-05-30 00:00:00 CBC w/ auto diff [code = CBC w/ auto diff] [facility] Diagnostic Test Pending 2023-05-30 00:00:00 vitamin D, 25-hydroxy, total, serum [code = vitamin D, 25-hydroxy, total, serum] [facility] Instructions [facility] Encounters Start Date/Time End Date/Time Encounter Type Admission Type Attending [facility] Care Facility Care Department Encounter ID Source 2023-01-04 08:50:00 Outpatient Starr Valladares [facility] [id number] [facility] 2021-08-26 13:19:01 Outpatient Starr Valladares [facility] [id number] [facility] 2023-07-06 00:00:00 2023-07-06 00:00:00 Outpatient CHRETIEN_F [facility] [id number] [facility] 2023-06-01 00:00:00 2023-06-01 00:00:00 Outpatient CHRETIEN_F [facility] [id number] [facility] 2023-05-30 00:00:00 2023-05-30 00:00:00 AYDIN Chappell C: [address] [place] [address], [address] [place] [phone] , Ph. [facility] [id number] [facility] 2023-05-29 00:00:00 2023-05-29 00:00:00 Outpatient CHRETIEN_F [facility] [id number] [facility] 2023-02-20 00:00:00 2023-02-20 00:00:00 AYDIN Chappell C: [address] [place] [address], [address] [place] [phone] , Ph. [facility] [id number] [facility] 2023-01-31 00:00:00 2023-01-31 00:00:00 Outpatient CHRETIEN_F [facility] [id number] [facility] 2023-01-31 00:00:00 2023-01-31 00:00:00 Outpatient CHRETIEN_F [facility] [id number] [facility] 2023-01-31 00:00:00 2023-01-31 00:00:00 Outpatient CHRETIEN_F [facility] [id number] [facility] 2023-01-31 00:00:00 2023-01-31 00:00:00 Marcela Fields APRN-YOUTH PASTOR-B C: [address] [place] [address], [address] [place] [phone] , Ph. [facility] [id number] [facility] 2023-01-11 00:00:00 2023-01-11 00:00:00 Outpatient CHRETIEN_F [facility] [id number] [facility] 2023-01-04 00:00:00 2023-01-04 00:00:00 (TEL) STLMLC [facility]C [id number] [facility] 2022-12-16 00:00:00 2022-12-16 00:00:00 (TEL) STLMLC STLMLC [id number] [facility] 2022-11-15 00:00:00 2022-11-15 00:00:00 (TEL) STLMLC STLMLC [id number] [facility] 2021-11-29 00:00:00 2021-11-29 00:00:00 (TEL) STLMLC STLMLC [id number] [facility] 2021-10-26 00:00:00 2021-10-26 00:00:00 OFFICE VISIT EST PT LEVEL 3 STLMLC STLMLC [id number] [facility] 2021-10-22 00:00:00 2021-10-22 00:00:00 (WEB) STLMLC STLMLC [id number] [facility] 2021-10-22 00:00:00 2021-10-22 00:00:00 (WEB) STLMLC STLMLC [id number] [facility] 2021-10-22 00:00:00 2021-10-22 00:00:00 (WEB) STLMLC STLMLC [id number] [facility] 2021-06-14 00:00:00 2021-06-14 00:00:00 (TEL) STLMLC STLMLC [id number] [facility] 2020-12-09 00:00:00 2020-12-09 00:00:00 SUB ANNUAL [facility] VISIT STLMLC STLMLC [id number] [facility] 2020-03-27 08:20:00 2020-03-27 08:20:[address] [facility] [id number] [facility] 2019-11-19 13:00:00 2019-11-19 13:00:00 [facility] [id number] [facility] 2019-09-19 09:41:00 2019-09-19 09:41:[address] [facility] [id number] [facility] 2019-09-18 10:40:00 2019-09-18 10:40:[address] [facility] [id number] [facility] 2019-06-18 14:00:00 2019-06-18 14:00:00 [facility] [id number] [facility] 2019-04-23 09:40:00 2019-04-23 09:40:00 [facility] [id number] [facility] 2019-03-08 13:32:00 2019-03-08 13:32:00 [facility] [id number] [facility] 2019-03-07 08:40:00 2019-03-07 08:40:00 [facility] [id number] [facility] 2019-01-24 14:20:00 2019-01-24 14:20:00 Outpatient [facility] [id number] [facility] 2018-06-19 13:10:00 2018-06-19 13:10:00 Outpatient [facility] [id number] [facility]
[2023-08-06] MEDS ORDERED: Ringers Lactate 1,000 ML IV ONE (23:18)
[2023-08-06 23:52] LABS: Absolute Lymphocytes (CBC) 0.4 K/uL (0.7-4.9); Hematocrit 42.6 % (39.6-49.0); Lymphocytes % 2.7 % (15.3-44.8); MCV 83.4 fL (80-100); Platelets 189 thou/uL (152-406); RBC Red Blood Cell Count 5.11 M/uL (4.33-5.43)
[2023-08-07 00:03] LABS: Renal Epithelial <5 /HPF (None Seen); Specific Gravity 1.015 (1.005-1.030); Urine Bacteria <20 /HPF (<20); Urine Bilirubin NEGATIVE (Negative); Urine Blood 3+ (OVER) (Negative); Urine Clarity Extremely Turbid (Clear); Urine Color Yellow (Yellow); Urine Glucose NEGATIVE (Negative); Urine Mucus Slight /HPF (None Seen); Urine Protein 1+ (Negative); Urine RBC >50 /HPF (None Seen); Urine Urobilinogen Normal (Normal); Urine WBC Clump Rare /HPF (None Seen)
[2023-08-07 00:09] LABS: Protime INR 1.4
[2023-08-07 00:17] LABS: Albumin 2.5 g/dL (3.4-5.0); Bilirubin Direct 0.5 mg/dL (0-0.2); Bilirubin Indirect, Calculated 0.9 mg/dL (0.2-0.8); Bilirubin Total 1.4 mg/dL (0.2-1.0); Magnesium 1.8 mg/dL (1.6-2.4); Potassium 4.2 mEq/L (3.5-5.1); Protein, Total 6.8 g/dL (6.4-8.2)
[2023-08-07 00:26] LABS: Blood Morphology Comment NOT SEEN (NOT SEEN); Platelet Estimate ADEQ
[2023-08-07 00:28] LABS: Troponin High Sensitivity 231.2 pg/mL (<58.9)
--- NOTE | 2023-08-07 00:40 | ER ---
Nurse's Notes [facility] Name: Eliseo Larson Jr Age: 48 yrs Sex: Male : 1975 Arrival Date: 08/06/2023 Time: 21:30 Bed 3 Private MD: Diagnosis: Subsequent non-ST elevation (NSTEMI) myocardial infarction;Syncope;Severe sepsis with septic shock Presentation: 08/06 21:50 Chief complaint: EMS states: "Patient fell while walking to the bathroom, positive LOC".jw7 21:50 Method Of Arrival: EMS: [facility] jw7 21:50 Coronavirus screen: At this time, the client does not indicate any symptoms associated [facility] with coronavirus-19. Ebola Screen: No symptoms or risks identified at this time. Initial Sepsis Screen: Does the patient meet any 2 criteria? RR > 20 per min. Systolic BP < 90 mmHg. Mean Arterial Pressure (MAP) < 65. Yes Does the patient have a suspected source of infection? No. Patient's initial sepsis screen is negative. Risk Assessment: Do you want to hurt yourself or someone else? Patient reports no desire to harm self or others. Onset of symptoms was August 06, 2023. Activity prior to arrival: incontinence, loss of consciousness. Mechanism of Injury: Fall from standing position. 21:50 Acuity: JUNG 2 jw7 Historical: - Allergies: 23:06 No Known Allergies; jw7 - Home Meds: 23:06 Spironolactone Oral [Active]; Metoprolol Tartrate Oral [Active]; levothyroxine oral jw7 [Active]; Lasix Oral [Active]; - PMHx: 23:06 Congestive heart failure; Hypertensive disorder; Hypothyroidism; jw7 - PSHx: 23:06 tracheostomy; jw7 - Immunization history:: Adult Immunizations up to date, Client reports having NOT received the Covid vaccine. Last tetanus immunization: > 10 years ago Flu vaccine is not up to date. - Social history:: Smoking status: Patient reports use of chewing tobacco. Patient uses alcohol, but reports only rare drinking. Patient/guardian denies using street drugs, IV drugs. Screenin:50 Abuse screen: Denies threats or abuse. Denies injuries from another. jw7 21:50 [facility] ED Fall Risk Assessment (Adult) History of falling in the last 3 months, jw7 including since admission Yes- single mechanical fall (1 pt) Confusion or Disorientation No (0 pts) Intoxicated or Sedated No (0 pts) Impaired Gait Yes (1 pt) Mobility Assist Device Used No (0 pt) Altered Elimination No (0 pt) Score/Fall Risk Level 3 or more points = High Risk Oriented to surroundings, Maintained a safe environment, Educated pt \\T\\ family on fall prevention, incl call for assistance when getting out of bed, Assessed \\T\\ reinforced patient's understanding of fall precautions, Hourly rounding (assess needs \\T\\ fall precautionary measures) done. Nutritional screening: No deficits noted. Tuberculosis screening: No symptoms or risk factors identified. Assessment: 22:46 General: Appears in no apparent distress. uncomfortable, ill, obese, unkempt, Behavior jb4 is calm, cooperative, Pt covered in own blood and feces. No active bleeding noted from sites of injury. Pain: Complains of pain in face, back, plantar aspect of left second toe, plantar aspect of left third toe and plantar aspect of left fourth toe Pain does not radiate. Pain currently is 8 out of 10 on a pain scale. Neuro: Level of Consciousness is awake, alert, obeys commands, Oriented to person, place, time, situation. Cardiovascular: Patient's skin is warm and dry. Respiratory: Airway via trache Trachea midline Respiratory effort is even, unlabored, Respiratory pattern is regular, symmetrical. GI: Abdomen is non-distended, obese. : Penile discharge is bloody, Pt reports difficulty urinating, denies pain with urination. Denies bloody discharge or urination prior to fall at [phone]. Provider made aware. EENT: No signs and/or symptoms were reported regarding the EENT system. Derm: Skin is dry, Skin is Rash noted that is on back, buttocks, chest, abdomen, right arm, left arm, right leg and left leg Lacerations noted to left second, third, and forth toe. Varying depths noted to lacerations. Pt denies prior injury or bleeding to left foot. Blood around injury is dried. Provider notified, injuries now soaking in Saline soaked gauze per providers instruction. Musculoskeletal: Reports weakness in right arm, left arm, right leg and left leg pain in back and left foot. Injury Description: Laceration sustained to plantar aspect of left second toe, plantar aspect of left third toe and plantar aspect of left fourth toe. 08/07 00:00 Reassessment: Patient appears in no apparent distress at this time. Patient and/or jb4 family updated on plan of care and expected duration. Pain level reassessed. Patient is alert, oriented x 3, equal unlabored respirations, skin warm/dry/pink. 00:15 Reassessment: Provider at the bedside. Decided against suturing affected left toes, jb4 instructed this nurse to place wet to dry dressing over left foot. 01:38 Reassessment: Patient appears in no apparent distress at this time. Patient and/or jb4 family updated on plan of care and expected duration. Pain level reassessed. Patient is alert, oriented x 3, equal unlabored respirations, skin warm/dry/pink. Wet to dry dressing applied to affected foot, abrasion noted to the left fifth toe, provider notified, provider instructed this nurse to continue to wrap foot with wet to dry dressing. 02:45 Reassessment: Reassessment: Admitting provider and ER physician notified pt is now jb4 having Coffee ground emesis. and pt remains hypotensive. Hospitalist changed pt to ICU admission. 04:00 Reassessment: Pt appears more pale, is not responding to IV fluids, reports feeling jb4 worse. Remains hypotensive, Hospital made aware, ER physician set up to do Central line. 04:15 Reassessment: Pt improving with Levophed infusing. See [employer] for Levophed order. jb4 Skin color has returned to normal. Vital Signs: 08/06 21:50 BP 78 / 51; Pulse 90; Resp 21 S; Temp 98.9(O); Pulse Ox 95% on R/A; Weight 226.8 kg jw7 (R); Height 6 ft. 2 in. ; Pain 6/10; 23:09 BP 98 / 63; Pulse 98; Resp 23 S; Pulse Ox 95% on R/A; jw7 23:45 BP 103 / 56; Pulse 92; Resp 23 S; Pulse Ox 96% on R/A; jw7 08/07 00:45 BP 92 / 48; Pulse 96; Resp 21; Pulse Ox 94% on R/A; jb4 01:30 BP 93 / 45; Pulse 98; Resp 21 S; Pulse Ox 93% on R/A; jw7 02:00 BP 94 / 63; Pulse 105; Resp 21 S; Pulse Ox 95% on R/A; jw7 02:30 BP 84 / 63; Pulse 91; Resp 22; Pulse Ox 94% on R/A; jb4 03:00 BP 76 / 56; Pulse 96; Resp 26 S; Pulse Ox 95% on R/A; jw7 03:30 BP 82 / 49; Pulse 103; Resp 24 S; Pulse Ox 89% on R/A; jw7 04:00 BP 78 / 65; Pulse 103; Resp 24; Pulse Ox 99% on 2 lpm Simple Mask; jw7 04:24 BP 106 / 72; Pulse 95; Resp 23 S; Pulse Ox 94% on 2 lpm Simple Mask; jw7 08/06 21:50 Body Mass Index 64.20 (226.80 kg, 187.96 cm) jw7 08/06 21:50 Pain Scale: Adult jw7 ED Course: 08/06 21:50 Patient has correct armband on for positive identification. Placed in gown. Bed in low jw7 position. Call light in reach. Side rails up X2. 21:52 Patient arrived in ED. pf1 21:52 Baldo Thurston DO is Attending Physician. ms3 23:03 Triage completed. jw7 23:09 Arm band placed on. jw7 23:16 Chest Single View XRAY In Process Unspecified. EDMS 23:16 Foot Left 3 View XRAY In Process Unspecified. EDMS 23:35 Initial lab(s) drawn, by me, sent to lab. Inserted saline lock: 20 gauge in right jw antecubital area, using aseptic technique. Blood collected. 23:44 Urinalysis w/ reflexes Sent. jw7 23:44 Urine collected: straight cath specimen, cloudy, divya colored, EKG done, by ED staff, jw7 reviewed by Baldo Thurston DO. 08/07 00:33 Hira Rich MD is Hospitalizing Provider. ms3 01:45 Inserted saline lock: 18 gauge in left antecubital area, using aseptic technique. Blood jb4 collected. 01:45 Initial lab(s) drawn, by me, sent to lab. First set of blood cultures drawn by me. jb4 02:00 Second set of blood cultures drawn by me. jb4 02:28 Provided Education on: need for admit. jw7 02:28 No provider procedures requiring assistance completed. jw7 02:28 Patient admitted, IV remains in place. jw7 04:50 Assisted provider with central line placement. Set up central line tray. Triple lumen jb4 line placed in right internal jugular. Line placed by Baldo Thurston DO Placement verified by CXR, blood return. Administered Medications: 08/06 23:44 Drug: Lactated Ringers Solution IV 1000 ml IV at bolus bolus Route: IV; Rate: bolus; jw7 Site: right antecubital; 08/07 02:19 Follow up: Response: No adverse reaction; IV Status: Completed infusion; IV Intake: jw7 1000ml 01:27 Drug: Aspirin PO Chewable Tablet 324 mg PO once; 81 mg tablets x 4 Route: PO; jb4 03:05 Follow up: Response: No adverse reaction jw7 01:45 Drug: Lactated Ringers Solution IV 1000 ml IV at bolus bolus Route: IV; Rate: bolus; jb4 Site: right antecubital; 03:06 Follow up: Response: No adverse reaction; IV Status: Completed infusion; IV Intake: jw7 1000ml 02:17 Drug: Rocephin IV 1 grams IV at calculated rate once; Given slow IV push per pharmacy jw7 instructions Route: IV; Rate: calculated rate; Site: right antecubital; 03:06 Follow up: Response: No adverse reaction; IV Status: Completed infusion; IV Intake: [id number] 02:17 Drug: AZITHromycin IVPB 500 mg IVPB once over 1 hrs; (mix in 250 mL NS) Route: IVPB; jw7 Infused Over: 1 hrs; Site: right antecubital; 03:05 Drug: Lactated Ringers Solution IV 1000 ml IV at bolus bolus Route: IV; Rate: bolus; jw7 Site: right antecubital; Medication: 02:28 VIS not applicable for this client. jw7 Intake: 02:19 IV: 1000ml; Total: 1000ml. jw7 03:06 IV: 1000ml; Total: 2000ml. jw7 03:06 IV: 50ml; Total: 2050ml. jw7 Outcome: 00:39 Decision to Hospitalize by Provider. ms3 04:50 Admitted to ICU accompanied by tech, room ICU-4, with chart, jb4 04:50 Condition: stable 04:50 Discharge instructions given to patient, Instructed on the need for admit, Demonstrated understanding of instructions, 05:02 Patient left the ED. jb4 Signatures: Dispatcher [employer] EDMS Philippe Yeboah, RN RN jb4 Baldo Thurston DO DO ms3 Norma Dye RN RN jw7 Kemi Garcia, RN RN pf1 Corrections: (The following items were deleted from the chart) 00:40 00:00 Reassessment: Patient appears in no apparent distress at this time. Patient jb4 and/or family updated on plan of care and expected duration. Pain level reassessed. Patient is alert, oriented x 3, equal unlabored respirations, skin warm/dry/pink. jb4 01:40 00:45 BP 92 / 48; Pulse 96bpm; Resp 16bpm; Pulse Ox 94% RA; jb4 jb4 02:14 01:38 Reassessment: Patient appears in no apparent distress at this time. Patient jb4 and/or family updated on plan of care and expected duration. Pain level reassessed. Patient is alert, oriented x 3, equal unlabored respirations, skin warm/dry/pink. jb4 04:04 04:02 Reassessment: 4 jb4 04:05 02:27 BP 94 / 63; Pulse 105bpm; Resp 21bpm; Spontaneous; Pulse Ox 95% RA; jw7 jw7
--- NOTE | 2023-08-07 00:40 | EDPHYS ---
Physician Documentation [facility] Name: Eliseo Larson Jr Age: 48 yrs Sex: Male : 1975 Arrival Date: 08/06/2023 Time: 21:30 Bed 3 Private MD: ED Physician Baldo Thurston HPI: 08/06 23:08 This 48 yrs old Male presents to ER via EMS with complaints of syncope. ms3 23:08 48-year-old male with past medical history of hypothyroidism, congestive heart failure, ms3 hypertension presents to the emergency department via [facility] status post syncopal episode at 5 PM. Patient denies headache, neck pain. Patient states his back is sore from laying on the ground. Patient denies any alleviating or inciting factors. Historical: - Allergies: 23:06 No Known Allergies; jw7 - Home Meds: 23:06 Spironolactone Oral [Active]; Metoprolol Tartrate Oral [Active]; levothyroxine oral jw7 [Active]; Lasix Oral [Active]; - PMHx: 23:06 Congestive heart failure; Hypertensive disorder; Hypothyroidism; jw7 - PSHx: 23:06 tracheostomy; jw7 - Immunization history:: Adult Immunizations up to date, Client reports having NOT received the Covid vaccine. Last tetanus immunization: > 10 years ago Flu vaccine is not up to date. - Social history:: Smoking status: Patient reports use of chewing tobacco. Patient uses alcohol, but reports only rare drinking. Patient/guardian denies using street drugs, IV drugs. ROS: 23:08 Constitutional: Negative for fever, and chills. Cardiovascular: Negative for chest ms3 pain, and palpitations. Respiratory: Negative for shortness of breath, cough, wheezing, and pleuritic chest pain, Abdomen/GI: Negative for abdominal pain, nausea, vomiting, diarrhea, and constipation, 23:08 : Positive for hematuria, 23:08 All other systems are negative, Exam: 23:08 Head/Face: Normocephalic, atraumatic. Neck: Trachea midline, no cervical ms3 lymphadenopathy. Supple, full range of motion without nuchal rigidity, or vertebral point tenderness. No Meningismus. Chest/axilla: Normal chest wall appearance and motion. Nontender with no deformity. Cardiovascular: Regular rate and rhythm with a normal S1 and S2. No gallops, murmurs, or rubs. Normal PMI, no JVD. No pulse deficits. Respiratory: Lungs have equal breath sounds bilaterally, clear to auscultation and percussion. No rales, rhonchi or wheezes noted. No increased work of breathing, no retractions or nasal flaring. 23:08 Skin: Warm, dry with normal turgor. Normal color with no rashes, no lesions, and no evidence of cellulitis. 23:08 Constitutional: The patient appears obese, 23:08 Abdomen/GI: Inspection: obese Bowel sounds: normal, Palpation: abdomen is soft and non-tender, 23:53 ECG was reviewed by the Attending Physician. ms3 08/07 00:16 Skin: injury, laceration(s), Lacerations to plantar surface of 2nd, 3rd, 4th toe, ms3 Vital Signs: 08/06 21:50 BP 78 / 51; Pulse 90; Resp 21 S; Temp 98.9(O); Pulse Ox 95% on R/A; Weight 226.8 kg jw7 (R); Height 6 ft. 2 in. ; Pain 6/10; 23:09 BP 98 / 63; Pulse 98; Resp 23 S; Pulse Ox 95% on R/A; jw7 23:45 BP 103 / 56; Pulse 92; Resp 23 S; Pulse Ox 96% on R/A; jw7 08/07 00:45 BP 92 / 48; Pulse 96; Resp 21; Pulse Ox 94% on R/A; jb4 01:30 BP 93 / 45; Pulse 98; Resp 21 S; Pulse Ox 93% on R/A; jw7 02:00 BP 94 / 63; Pulse 105; Resp 21 S; Pulse Ox 95% on R/A; jw7 02:30 BP 84 / 63; Pulse 91; Resp 22; Pulse Ox 94% on R/A; jb4 03:00 BP 76 / 56; Pulse 96; Resp 26 S; Pulse Ox 95% on R/A; jw7 03:30 BP 82 / 49; Pulse 103; Resp 24 S; Pulse Ox 89% on R/A; jw7 04:00 BP 78 / 65; Pulse 103; Resp 24; Pulse Ox 99% on 2 lpm Simple Mask; jw7 04:24 BP 106 / 72; Pulse 95; Resp 23 S; Pulse Ox 94% on 2 lpm Simple Mask; jw7 08/06 21:50 Body Mass Index 64.20 (226.80 kg, 187.96 cm) jw7 08/06 21:50 Pain Scale: Adult jw7 Procedures: 04:51 Central Line: the site was prepped with in sterile fashion, Chlorahexadine, a triple ms3 lumen catheter was inserted, in the right internal jugular vein, in 1 attempts. placement was verified, by blood return, the site was dressed with Tegaderm, the patient tolerated the procedure, well. MDM: 08/06 21:52 Patient medically screened. ms3 23:08 Differential Diagnosis: cardiac arrhythmia, idiopathic syncope, vasovagal episode. ms3 08/07 00:17 ED course: Discussed closure of lacerations of second, third, fourth toes with patient. ms3 Discussed with patient heavy fecal contamination on arrival and wounds have been present for over 6 hours. Discussed concern for infection despite thorough cleaning of wounds.. 02:10 Data reviewed: vital signs, nurses notes, lab test result(s), EKG, radiologic studies, ms3 and as a result, I will admit patient. Consideration of Admission/Observation Patient was admitted/placed on observation. Management of patient was discussed with the following: Hospitalist: Dr Rich. Lead Generation Specialist: Dr Gabriel- He will consult on patient. No need for transfer. I considered the following discharge prescriptions or medication management in the emergency department Medications were administered in the Emergency Department. See MAR. Independent interpretation of the following test(s) in the Emergency Department EKG: See my EKG interpretation above. Historians other than the Patient: EMS: [facility]. Care significantly affected by the following chronic conditions: Hypertension, Congestive Heart Failure. Care significantly affected by the following Social Determinants of Health: Poor access to healthcare and/or lack of insurance. Counseling: I had a detailed discussion with the patient and/or guardian regarding the historical points, exam findings, and any diagnostic results supporting the discharge/admit diagnosis, lab results, radiology results, the need for further work-up and treatment in the hospital. 02:54 ED course: A. Possible pneumonia on CXR B. HR and RR C. LA 3.9. ms3 03:01 ED course: Patient's SBP 84 at this time. Patient now meets septic shock criteria. A. ms3 Pneumonia B. HR and RR. C SBP <90 mm Hg. Will give 30 mL/kg IVF bolus of 2340 ml based on [place] body weight of 78 kg.. 03:15 ED course: Sepsis re-evaluation complete. ms3 04:37 ED course: CVL placed for medicine team, Dr Rich as patient is currently on ms3 Levophed. Patient is a/o x 4, nad, non-toxic, speaking in full sentences.. 04:51 ED course: CXR performed. Read pending. Dr Rich aware. ms3 08/06 21:52 Order name: Basic Metabolic Panel; Complete Time: 00:29 ms3 08/06 21:52 Order name: CBC with Diff; Complete Time: 00:29 ms3 08/06 21:52 Order name: Hepatic Function; Complete Time: 00:29 ms3 08/06 21:52 Order name: Magnesium; Complete Time: 00:29 ms3 08/06 21:52 Order name: Protime (+inr); Complete Time: 00:29 ms3 08/06 21:52 Order name: Ptt, Activated; Complete Time: 00:29 ms3 08/06 21:52 Order name: Troponin High Sensitivity; Complete Time: 00:29 ms3 08/06 22:35 Order name: Urinalysis w/ reflexes; Complete Time: 00:29 ms3 08/06 23:56 Order name: Manual Differential; Complete Time: 00:29 EDMS 08/07 01:40 Order name: Blood Culture Adult (2) ms3 08/07 01:40 Order name: Lactate w/ 2H reflex if indic.; Complete Time: 03:25 ms3 08/07 02:14 Order name: CBC with Automated Diff EDMS 08/07 02:14 Order name: CBC with Automated Diff EDMS 08/07 02:14 Order name: Comprehensive Metabolic Panel EDMS 08/07 02:14 Order name: Comprehensive Metabolic Panel EDMS 08/07 02:14 Order name: Troponin High Sensitivity EDMS 08/07 02:14 Order name: Troponin High Sensitivity; Complete Time: 05:08 EDMS 08/07 02:14 Order name: Troponin High Sensitivity EDMS 08/07 02:14 Order name: Troponin High Sensitivity EDMS 08/06 21:52 Order name: Chest Single View XRAY ms3 08/06 22:34 Order name: Foot Left 3 View XRAY ms3 08/07 04:24 Order name: Chest Single View XRAY kmf 08/06 21:52 Order name: EKG; Complete Time: 21:53 ms3 08/07 02:14 Order name: CONS Physician Consult EDMS 08/06 21:52 Order name: Cardiac monitoring; Complete Time: 23:10 ms3 08/06 21:52 Order name: EKG - Nurse/Tech; Complete Time: 23:44 ms3 08/06 21:52 Order name: IV Saline Lock; Complete Time: 23:36 ms3 08/06 21:52 Order name: Labs collected and sent; Complete Time: 23:36 ms3 08/06 21:52 Order name: NPO; Complete Time: 23:10 ms3 08/06 21:52 Order name: O2 Per Protocol; Complete Time: 23:10 ms3 08/06 21:52 Order name: O2 Sat Monitoring; Complete Time: 23:10 ms3 08/07 01:40 Order name: Accucheck; Complete Time: 01:40 ms3 08/07 01:40 Order name: IV Saline Lock - Large Bore; Complete Time: 01:40 ms3 08/07 01:40 Order name: Vital Signs; Complete Time: 01:40 ms3 EC/21 23:53 Rate is 94 beats/min. Rhythm is regular. QRS [place] is Normal. [place] interval is normal. QRS ms3 interval is normal. Clinical impression: Normal ECG. Interpreted by me. Reviewed by me. Administered Medications: 23:44 Drug: Lactated Ringers Solution IV 1000 ml IV at bolus bolus Route: IV; Rate: bolus; jw7 Site: right antecubital; 08/07 02:19 Follow up: Response: No adverse reaction; IV Status: Completed infusion; IV Intake: jw7 1000ml 01:27 Drug: Aspirin PO Chewable Tablet 324 mg PO once; 81 mg tablets x 4 Route: PO; jb4 03:05 Follow up: Response: No adverse reaction jw7 01:45 Drug: Lactated Ringers Solution IV 1000 ml IV at bolus bolus Route: IV; Rate: bolus; jb4 Site: right antecubital; 03:06 Follow up: Response: No adverse reaction; IV Status: Completed infusion; IV Intake: jw7 1000ml 02:17 Drug: Rocephin IV 1 grams IV at calculated rate once; Given slow IV push per pharmacy jw7 instructions Route: IV; Rate: calculated rate; Site: right antecubital; 03:06 Follow up: Response: No adverse reaction; IV Status: Completed infusion; IV Intake: [id number] 02:17 Drug: AZITHromycin IVPB 500 mg IVPB once over 1 hrs; (mix in 250 mL NS) Route: IVPB; jw7 Infused Over: 1 hrs; Site: right antecubital; 03:05 Drug: Lactated Ringers Solution IV 1000 ml IV at bolus bolus Route: IV; Rate: bolus; jw7 Site: right antecubital; Disposition Summary: 08/07/23 00:39 Hospitalization Ordered Notes: Hospitalization Status: Inpatient Admission ms3 Provider: Hira Rich ms3 Condition: Stable ms3 Problem: new ms3 Symptoms: are unchanged ms3 Bed/Room Type: Standard ms3 Location: Intensive Care Unit(08/07/23 03:04) ms3 Room Assignment: 4-(08/07/23 03:27) pf1 Diagnosis - Subsequent non-ST elevation (NSTEMI) myocardial infarction ms3 - Syncope ms3 - Severe sepsis with septic shock ms3 Forms: - Medication Reconciliation Form ms3 - SBAR form ms3 - Leadership Thank You Letter ms3 Critical care time excluding procedures: 04:38 Critical care time: Bedside Care: 40 minutes, Consultation: 10 minutes. Total time: 50 ms3 minutes Signatures: Dispatcher [employer] EDMS Roselyn Patrick RN RN cg Philippe Yeboah RN RN jb4 Baldo Thurston DO DO ms3 Norma Dye RN RN jw7 Kemi Garcia RN RN pf1 Corrections: (The following items were deleted from the chart) 01:46 01:40 COMPREHENSIVE METABOLIC PANEL+C.LAB.BRZ ordered. EDMS EDMS 01:46 01:40 HEPATIC FUNCTION+C.LAB.BRZ ordered. EDMS EDMS 02:25 00:39 ms3 cg 03:04 00:39 Telemetry/MedSurg (Inpatient) ms3 ms3 03:04 02:25 218 cg ms3 03:27 03:04 ms3 pf1 05:13 02:54 ED course: A. Possible pneumonia B. HR and RR C. LA 3.9. ms3 ms3
[2023-08-07] MEDS ORDERED: ASPIRIN 81 MG CHEWABLE TABLET ONE (01:05)
[2023-08-07] MEDS ORDERED: Ringers Lactate 1,000 ML IV ONE ×2 (01:42→03:03)
[2023-08-07] MEDS ORDERED: CEFTRIAXONE 1000 MG/VIAL ONE (02:02)
[2023-08-07] MEDS ORDERED: NA CHLORIDE 0.9% 250 ML ONE (02:02)
[2023-08-07] MEDS ORDERED: AZITHROMYCIN 500 MG INJ IVPB ONE (02:02)
[2023-08-07] MEDS ORDERED: NA CHLORIDE 0.9% 50 ML ONE (02:02)
[2023-08-07] MEDS ORDERED: ONDANSETRON 4 MG/2 ML VIAL IV PRN (02:08)
[2023-08-07] MEDS ORDERED: MAGNESIUM HYDROXIDE 8% 30 ML PO PRN (02:08)
[2023-08-07] MEDS ORDERED: ACETAMINOPHEN 325 MG TABLET PO PRN (02:08)
--- NOTE | 2023-08-07 02:13 | P.HP ---
Certification for Inpatient Patient admitted to: Inpatient () With expected LOS: >2 Midnights Practitioner: I am a practitioner with admitting privileges, knowledge of patient current condition, hospital course, and medical plan of care. Services: Services provided to patient in accordance with Admission requirements found in Title 42 Section 412.3 of the Code of Federal Regulations Patient History Date of Service: 08/07/23 Reason for admission: Syncope, weakness. History of Present Illness: 48-year-old male patient was medical history significant for type 2 diabetes, hypothyroidism, morbid obesity, hypertension and with status post tracheostomy creation for respiratory failure who was found down at home unconscious and covered and is on excrement. He reported that he went to the bathroom and suddenly collapsed. He could not tell events that happened around the time of collapse but he denied overt episode of shortness of breath, chest pain. She was brought to the ED and in the ED initial imaging did not show significant finding however he had elevated creatinine of 2.4 and elevated white cell of 13,000. He was deemed to be in septic condition as he has a soft blood pressure so he was given IV fluid boluses and was admitted for inpatient care. Broad- spectrum antibiotics were started after cultures were taken. He was also found to have significant wounds in the lower extremities. Allergies No Known Allergies Allergy (Verified 06/17/13 20:12) Home Medications: Amiodarone HCl [Cordarone*] 200 mg PO DAILY #30 tab 07/29/13 Furosemide [Lasix*] 40 mg PO DAILY #30 tab 07/29/13 Spironolactone [Aldactone*] 50 mg PO DAILY #30 tab 07/29/13 Levothyroxine [Synthroid*] 0.1 mg PO [id number] 08/21/13 Metoprolol Tartrate [Lopressor*] 50 mg PO BID 08/21/13 Amiodarone HCl [Cordarone*] 200 mg PO DAILY 6PM #30 tab 08/30/13 Aspirin Tab [Jolly Aspirin*] 325 mg PO DAILY #30 tab 08/30/13 Furosemide [Lasix*] 40 mg PO DAILY #30 tab 08/30/13 Levothyroxine [Synthroid*] 0.2 mg PO [id number] #30 tab 08/30/13 Metoprolol Tartrate [Lopressor*] 25 mg PO BID #60 tab 02/14/14 Spironolactone [Aldactone*] 50 mg PO DAILY #50 tab 08/30/13 Warfarin Sodium [Coumadin*] 15 mg PO DAILY 5 PM #90 tab 08/30/13 - Past Medical/Surgical History Diabetic: Yes -: htn -: iddm -: CHF -: trach insertion - Social History Alcohol use: Yes CD- Drugs: No Caffeine use: Yes Review of Systems General: Weakness, Malaise Eyes: Unremarkable ENT: Unremarkable Respiratory: Unremarkable Cardiovascular: Unremarkable Gastrointestinal: Nausea, Vomiting Genitourinary: Unremarkable Musculoskeletal: Unremarkable Integumentary: Unremarkable Physical Examination - Physical Exam General: Alert HEENT: Other (trach in place) Respiratory: Normal air movement Cardiovascular: Regular rate/rhythm, Normal S1 S2 Gastrointestinal: Soft and benign Musculoskeletal: Tenderness, Warmth Integumentary: Skin breakdown, Skin lesion, Erythema Neurological: Normal speech - Studies Laboratory Data (last 24 hrs) 08/07/23 08/06/23 08/06/23 01:40 23:34 23:34 WBC 13.40 H Hgb 13.8 Hct 42.6 Plt Count 189 PT 15.3 H INR 1.40 APTT 37.8 H Sodium Cancelled Potassium Cancelled BUN Cancelled Creatinine Cancelled Glucose Cancelled Magnesium Total Bilirubin Cancelled AST Cancelled ALT Cancelled Alkaline Phosphatase Cancelled 08/06/23 23:34 WBC Hgb Hct Plt Count PT INR APTT Sodium 137 Potassium 4.2 BUN 31 H Creatinine 2.70 H Glucose 104 Magnesium 1.8 Total Bilirubin 1.4 H AST 136 H ALT 26 Alkaline Phosphatase 73 Assessment and Plan - Plan Sepsis: Deemed secondary to suspected bacteremia/worsening wound infection in the lower extremity. IV fluid bolus started and vasopressor support also started. will put patient in ICU level care. Monitor vitals closely. Will follow trend of lactic acid. Will aim for mean arterial pressure of 65 mmHg for adequate vitals organ perfusion. Syncope: Deemed secondary to septic condition and hypotension. Empiric antibiotic therapy have been started. Will continue vancomycin and cefepime for management of Infectious process Will obtain imaging study to rule out possible thromboembolic phenomenon once kidney function stabilizes. NSTEMI: Troponin is elevated. Will follow trend as this is deemed to be due to demand ischemia from sepsis. Cardiology service to be consulted as necessary. Wound infection: Patient had multiple wound in the lower extremity with concerns. Wound care consult placed. Empiric antibiotic therapy was started. Morbid obesity: We will continue to encourage weight loss Hypertension: We will monitor vitals per unit protocol at this point patient is hypotensive and will be continued on vasopressors for support. Diabetes type 2: We will continue renal diet Restricted diet and sliding scale insulin for blood sugar control. Will have him on ACHS blood sugar management. Acute kidney injury: Creatinine is elevated at 2.7. Deemed secondary to hypotensive episode. We will continue IV fluid for management of volume depletion and also septic condition. Will follow trend of kidney function closely. Hypothyroidism: We will continue levothyroxine dose. Status post tracheostomy placement: Management as per respiratory therapy. Chronic anticoagulation use: We will continue warfarin dose Chronic atrial fibrillation: We will continue amiodarone dose and other rate control medication Prophylaxis: Warfarin to be continued for A-fib anticoagulation and should suffice for DVT prophylaxis. CODE STATUS: Full code Disposition: We will treat his multiple medical issues and he will be discharged once is deemed clinically stable for outpatient care. - Advance Directives Does patient have a Living Will: No Does patient have a Durable POA for Healthcare: No
[2023-08-07] MEDS ORDERED: ONDANSETRON 4 MG/2 ML VIAL ONE (02:35)
[2023-08-07] MEDS ORDERED: NOREPINEPHRINE BITARTRATE/D5W 4 MG/250 ML BAG IV ONE ×3 (03:56→09:27)
[2023-08-07] MEDS ORDERED: VANCOMYCIN 2 GM in NA CHLORIDE 0.9% 500 ML IVPB SCH (04:00)
[2023-08-07] MEDS: NOREPINEPHRINE 4 MG in D5W 250 ML IV SCH ×2 (04:06→06:31)
[2023-08-07] MEDS ORDERED: D50W 25 GM/50 ML SYRINGE IV PRN (04:09)
[2023-08-07] MEDS ORDERED: GLUCAGON 1 MG/VIAL IM PRN (04:09)
[2023-08-07] MEDS ORDERED: D10W 125 ML IV PRN (04:11)
[2023-08-07] MEDS ORDERED: VANCOMYCIN 1 GM/VIAL ONE (05:31)
[2023-08-07] MEDS ORDERED: NA CHLORIDE 0.9% 500 ML ONE ×2 (05:32→09:32)
[2023-08-07] MEDS: INSULIN REGULAR (HUMAN) 100 UNIT/ML SQ SCH ×4 (07:30→20:47)
[2023-08-07 07:31] LABS: Hematocrit 40.3 % (39.6-49.0); MCV 82.6 fL (80-100); MPV 8.2 fL (7.6-11.3); Platelets 208 thou/uL (152-406); RBC Red Blood Cell Count 4.88 M/uL (4.33-5.43)
[2023-08-07] MEDS ORDERED: INFLUENZA VACCINE (for 6+ mo) 0.5 ML DOSE IMVAC ONE (08:00)
[2023-08-07] MEDS ORDERED: NA CHLORIDE 0.9% 100 ML ONE (08:06)
[2023-08-07] MEDS ORDERED: CEFEPIME 2 GM VIAL ONE (08:06)
[2023-08-07 08:13] LABS: Albumin 2.3 g/dL (3.4-5.0); Bilirubin Total 1.3 mg/dL (0.2-1.0); Magnesium 1.5 mg/dL (1.6-2.4); Phosphorus 3.7 mg/dL (2.5-4.9); Potassium 3.9 mEq/L (3.5-5.1); Protein, Total 6.7 g/dL (6.4-8.2)
[2023-08-07] MEDS: CEFEPIME 2 GM in NA CHLORIDE 0.9% 100 ML IV SCH (08:25)
[2023-08-07] MEDS: ENOXAPARIN 40 MG/0.4 ML SQ SCH (08:25)
[2023-08-07] MEDS ORDERED: CEFEPIME 1 GM in NA CHLORIDE 0.9% 100 ML IV SCH (09:00)
[2023-08-07] MEDS ORDERED: VANCOMYCIN 1.75 GM in NA CHLORIDE 0.9% 500 ML IVPB SCH (09:00)
[2023-08-07] MEDS ORDERED: SODIUM CHL 0.9% IV ONE ×2 (09:31→10:56)
[2023-08-07] MEDS ORDERED: [UNRECOGNIZED DRUG - OTHER] IV ONE ×2 (09:31→10:56)
[2023-08-07] MEDS ORDERED: NOREPINEPHRINE BITARTRATE/D5W 4 MG/250 ML BAG IV SCH (10:00)
[2023-08-07] MEDS ORDERED: NA CHLORIDE 0.9% 500 ML IV ONE (10:00)
[2023-08-07 10:56] LABS: Platelet Estimate ADEQ; Platelets, Giant FEW PRESENT; White Blood Cell Scan OK (OK)
[2023-08-07 10:57] LABS: Blood Morphology Comment NOT SEEN (NOT SEEN)
[2023-08-07] MEDS ORDERED: NA CHLORIDE 0.9% 500 ML IV SCH (11:00)
[2023-08-07] MEDS ORDERED: NA CHLORIDE 0.9% 1,000 ML IV SCH ×2 (11:00→13:00)
--- NOTE | 2023-08-07 11:19 | RAD REPORT ---
EXAM DESCRIPTION: US - Extrem Venous W Compress Burke - 08/07/2023 10:51 am CLINICAL HISTORY: hx dvt, syncope, elevated trop Bilateral leg edema and swelling. COMPARISON: Extrem Venous W Compress Burke dated 10/21/2021 TECHNIQUE: Real-time sonographic interrogation of the left and right lower extremity deep venous sys tems was performed. FINDINGS: Normal compressibility, flow augmentation, phasic flow and spontaneous flow is identified in both the left and right lower extremity deep venous systems. IMPRESSION: No sonographic evidence of left or right lower extremity deep venous thrombosis.
--- NOTE | 2023-08-07 12:38 | RAD REPORT ---
EXAM DESCRIPTION: XR CHEST 1 VIEW CLINICAL HISTORY: Syncope COMPARISON: None. TECHNIQUE: XR CHEST 1 VIEW 08/06/2023 9:52 PM BUSINESS SYSTEMS ANALYST FINDINGS: The heart is enlarged. There is vague bibasilar airspace disease. There may be small pleur al effusions. There is no pneumothorax. There are no acute osseous findings. Tracheostomy is present. IMPRESSION: Difficult to completely exclude bibasilar pneumonia. Limited study. Electronically signed by: Fitz Donato MD 08/06/2023 11:25 PM BUSINESS SYSTEMS ANALYST Due to temporary technical issues with the PACS/Fluency reporting system, reports are being signed by the in house radiologist without review as a courtesy to ensure prompt reporting. The interpreting r adiologist is fully responsible for the content of the report.
--- NOTE | 2023-08-07 12:41 | RAD REPORT ---
EXAM DESCRIPTION: Foot Left 3 View CLINICAL HISTORY: 48 years Male PAIN COMPARISON: None TECHNIQUE: 3 images of the left foot were obtained. FINDINGS: Fracture shaft proximal phalanx fifth toe. Overlying dressing in the region of the distal toes. No additional fractures seen. Normal bony mineralization. No erosive or lytic lesions seen. No cortical disruption. No abnormal periosteal reaction. Small calcaneal spur. Dorsal soft tissue swelling. Additional soft tissue swelling lower leg. Soft ti ssue calcifications. IMPRESSION: Fracture shaft proximal phalanx fifth toe. Soft tissue swelling Electronically signed by: Ana Maria Cornejo MD 08/06/2023 11:27 PM STANDARDS ANALYST Due to temporary technical issues with the PACS/Fluency reporting system, reports are being signed by the in house radiologist without review as a courtesy to ensure prompt reporting. The interpreting r adiologist is fully responsible for the content of the report.
[2023-08-07] MEDS ORDERED: NOREPINEPHRINE IV SCH (12:45)
[2023-08-07] MEDS ORDERED: NA CHLORIDE 0.9% IV SCH (12:45)
--- NOTE | 2023-08-07 12:55 | P.CNS ---
Date of Consult: 08/07/23 Reason for Consult: Loss of consciousness Chief Complaint: Syncope, weakness. History of Present Illness: Patient is 48 years of age has a history of trach for sleep apnea currently was walking to the bathroom he felt dizzy and was working on his computer and this was around 430 on Monday and fallen some nasal bleeding denies any shortness of breath chest pain palpitation no history of coronary artery disease Allergies No Known Allergies Allergy (Verified 06/17/13 20:12) Home Medications: Spironolactone [Aldactone*] 50 mg PO DAILY #30 tab 07/29/13 Metoprolol Tartrate [Lopressor*] 50 mg PO BID 08/21/13 Furosemide [Lasix*] 40 mg PO DAILY #30 tab 08/30/13 Levothyroxine Sodium 175 mcg PO DAILY 08/07/23 - Past Medical/Surgical History Diabetic: No -: htn -: sleep apnea -: CHF -: trach insertion - Family History Mother Medical History: Heart disease - Social History Smoking Status: Former smoker Alcohol use: No CD- Drugs: No Caffeine use: Yes Place of Residence: Home Review of Systems 10-point ROS is otherwise unremarkable Physical Examination Temp Pulse Resp BP Pulse Ox 98.6 F 103 H 30 H 89/60 L 94 08/07/23 12:00 08/07/23 12:30 08/07/23 12:30 08/07/23 12:30 08/07/23 12:30 General: Alert, In no apparent distress, Oriented x3 HEENT: Atraumatic, Other Respiratory: Clear to auscultation bilaterally Cardiovascular: No edema, Normal pulses, Regular rate/rhythm Gastrointestinal: Normal bowel sounds, Soft and benign, Non-distended Laboratory Data (last 24 hrs) 08/07/23 08/06/23 08/06/23 01:40 23:34 23:34 WBC 13.40 H Hgb 13.8 Hct 42.6 Plt Count 189 PT 15.3 H INR 1.40 APTT 37.8 H Sodium Cancelled Potassium Cancelled BUN Cancelled Creatinine Cancelled Glucose Cancelled Magnesium Total Bilirubin Cancelled AST Cancelled ALT Cancelled Alkaline Phosphatase Cancelled 08/06/23 23:34 WBC Hgb Hct Plt Count PT INR APTT Sodium 137 Potassium 4.2 BUN 31 H Creatinine 2.70 H Glucose 104 Magnesium 1.8 Total Bilirubin 1.4 H AST 136 H ALT 26 Alkaline Phosphatase 73 - Problems (1) Syncope Current Visit: Yes Status: Acute Plan: Patient is 48 years of age admitted with a syncopal attack no prior history of cardiopulmonary problems does not smoke patient has a trach has sleep apnea currently looks like he has had a non-STEMI troponins are elevated lactic acid is also elevated chest x-ray shows cardiomegaly patient's white count is also elevated have underlying sepsis has renal failure duration unspecified patient is blood pressure is currently low BNP 7000 patient will need a stress test he can probably tolerate some fluid boluses I will also added some hydrocortisone
[2023-08-07] MEDS ORDERED: HYDROCORTISONE SUC 100 MG INJ ONE ×2 (13:07→20:44)
[2023-08-07] MEDS: NOREPINEPHRINE 8 MG in Dextrose 5%-Water 492 ML IV SCH ×2 (13:14→21:11)
[2023-08-07] MEDS: HYDROCORTISONE SUC 100 MG INJ IV SCH ×2 (13:15→20:46)
--- NOTE | 2023-08-07 13:40 | ECHO ---
HEIGHT: 5 ft 9 in WEIGHT: 425 lb 0 oz DATE OF STUDY: 08/07/[address]: Boone Salazar MD 2-DIMENSIONAL: YES M.MODE: YES DOPPLER: YES COLOR FLOW: YES TDS: PORTABLE: YES DEFINITY: BUBBLE STUDY: DIAGNOSIS: SYNCOPE, HISTORY OF ATRIAL FIBRILLATION, NON ST ELEVATION MYOCARDIAL INFARCTION CARDIAC HISTORY: CATHERIZATION: SURGERY: PROSTHETIC VALVE: PACEMAKER: MEASUREMENTS (cm) DIASTOLIC (NORMALS) SYSTOLIC (NORMALS) IVSd 1.2 (0.6-1.2) LA Diam 3.3 (1.9-4.0) LVEF 63% LVIDd 5.2 (3.5-5.7) LVIDs 3.4 (2.0-3.5) %FS 34% LVPWd 1.3 (0.6-1.2) Ao Diam 3.6 (2.0-3.7) 2 DIMENSIONAL ASSESSMENT: RIGHT ATRIUM: NORMAL LEFT ATRIUM: NORMAL RIGHT VENTRICLE: NORMAL LEFT VENTRICLE: NORMAL TRICUSPID VALVE: NORMAL MITRAL VALVE: NORMAL PULMONIC VALVE: NOT WELL SEEN AORTIC VALVE: NORMAL PERICARDIAL EFFUSION: NONE AORTIC ROOT: NORMAL LEFT VENTRICULAR WALL MOTION: APPEARS NORMAL DOPPLER/COLOR FLOW: SEE BELOW COMMENTS: 1. VERY POOR WINDOWS 2. OVERALL LEFT VENTRICULAR EJECTION FRACTION APPEARS NORMAL 55-60% TECHNOLOGIST: MIHIR NUGENT
--- NOTE | 2023-08-07 14:08 | RAD REPORT ---
EXAM DESCRIPTION: Chest Single View CLINICAL HISTORY: CENTRAL LINE COMPARISON: 08/06/2023 FINDINGS: Single frontal view of the chest. Tubes and lines: Interval placement of right IJ central venous catheter tip in the SVC. Tracheostomy. Leads overlie the chest. Cardiomediastinal silhouette: Stable Lungs: Mild interval increase in bilateral perihilar opacities. No pneumothorax. Likely small pleural effusions. Bones: Stable. Upper abdomen: Stable. IMPRESSION: 1. Right IJ central venous catheter in appropriate position. 2. Mild interval increase in bilateral perihilar opacities. Electronically signed by: Dave Noyola DO 08/07/2023 04:59 AM ADMINISTRATIVE ASSOCIATE M Due to temporary technical issues with the PACS/Fluency reporting system, reports are being signed by the in house radiologist without review as a courtesy to ensure prompt reporting. The interpreting r adiologist is fully responsible for the content of the report.
--- NOTE | 2023-08-07 15:44 | P.CNS ---
Date of Consult: 08/07/23 PC: I was asked to see this 48-year-old male in regards to wounds to his left foot. HPC: Patient apparently had a fall at home. Was brought in for evaluation and treatment. He has a history of respiratory insufficiency due to obesity, and has a trach in place. Not sure why he fell, does not know if he had a blackout. However was feeling pain anywhere prior to his collapse. PSHx: Tracheostomy PMHx: Morbid obesity and associated issues Social Hx: No known allergies Sys R: Has otherwise been in relatively good health. He is able to get up and walk around normally at home. He does have respiratory insufficiency and has a trach which she is able to manage O/E: Awake alert vital signs are stable at the moment, on pressors HEENT: Within normal limits Chest: Chest movement equal bilaterally Abd: Feel over the area of the junction between the second third and fourth metatarsal phalangeal joint has a laceration. Extends down through the skin. [place]: Bandage left foot Data: X-ray shows fracture of the fifth toe base Impression: Fracture of the fifth toe Plan: This morbidly obese male with respiratory insufficiency has some lacerations to the creases of his second through fifth toe on the plantar surface. They appear just to be down through the skin. There is a fracture of the fifth toe. Will treat with observation for now. Will order wound care for his lacerations.
--- NOTE | 2023-08-07 16:10 | P.PN ---
Date of Service: 08/07/23 Patient seen and examined on rounds this morning, shortly after admission. shock, on levo, suspect sepsis with NSTEMI and elevated CPK after falling, unknown how long he was down with SOUMYA, nephrology consulted for rhabdo; s/p IVF bolus continue on IVF, monitor BP pulm/critical care consulted continue icu care reports remote history of dvt in ~2013, on anticoagulation briefly and taken off - due to provoked dvt
--- NOTE | 2023-08-07 16:52 | EKG ---
Test Date: 2023-08-06 Test Time: 23:47:23 Surveillance Inspector: PAUL MEASUREMENT RESULTS: Intervals: Rate: 94 UT: 178 QRSD: 112 QT: 378 QTc: 472 [place]: P: 69 UT: 178 QRS: 58 T: 16 INTERPRETIVE STATEMENTS: Normal sinus rhythm Low voltage QRS Borderline ECG Compared to ECG 10/21/2021 12:50:05 Low QRS voltage now present Incomplete right bundle-branch block no longer present Prolonged QT interval no longer present Electronically Signed On 08-07-23 16:51:08 LOCOMOTIVE LUBRICATING SYSTEMS CLERK by Antonio Gabriel
--- NOTE | 2023-08-07 19:24 | CON ---
Date of Consultation: 08/07/2023 Reason For Consultation: Syncope. History Of Present Illness: 48-year-old male, history of type 2 diabetes, morbid obesity with genera lized case of anasarca, hypertension, diabetes, has tracheostomy tube in place due to chronic respira tory failure, went to bathroom and suddenly collapsed and passed out. Upon arrival to the emergency room, the creatinine was elevated and he was hypotensive, required Levophed and his blood pressure is better right now and apparently he has also history of atrial fibrillation as well. Past Medical History: As outlined above in the HPI. Medications: Refer to reconciliation sheet for detailed list. Allergies: NO KNOWN DRUG ALLERGIES. Family History: No premature coronary artery disease or cancer. Social History: Does not smoke or drink. Does not use any drugs. Review of Systems: All systems reviewed and they were negative except what mentioned in HPI. Physical Examination: Vital Signs: Reviewed. Head and Neck: Pupils are equal, reactive to light. Intact eye movements. No cervical lymphadenopa thy. Neck is supple. Thyroid is not enlarged. Lungs: Decreased breathing sounds bilaterally. No accessory muscle use or muscle retraction. Heart: Regular rate and rhythm. No extra sounds. Abdomen: Soft, nontender. Bowel sounds positive. No organomegaly. No masses or hernia. No rigidi ty or rebound. Extremities: Massive edema bilaterally with chronic stasis changes and peripheral pulses intact. Neurologic: Alert, awake, oriented x3. No acute focal deficits appreciated. Lymph nodes: No cervical or axillary lymphadenopathy. Investigations: BUN is 33, creatinine 2.7, troponin is 162 with CK level in the range of 11,000. Assessment And Plan: 1.Syncope due to hypotension, ejection fraction is normal on echo. The patient needs fluid replacem ent. 2.Acute renal failure due to rhabdomyolysis and dehydration. IV fluid management and Nephrology dagoberto l. 3.Elevated troponin, borderline. There is no chest pain. This is demand ischemia. No further card iac workup is needed. Ejection fraction is normal on echo. Cardiology will sign off from the case. SR/MODL Voice ID: [id number] Report ID: [id number]
[2023-08-07] MEDS ORDERED: NA CHLORIDE 0.9% 1,000 ML ONE (19:31)
[2023-08-07] MEDS: NA CHLORIDE 0.9% 1,000 ML IV SCH (19:33)
--- NOTE | 2023-08-07 23:09 | CON ---
Date of Consultation: 08/07/2023 Chief Complaint: Syncope, weakness, and Nephrology consultation is requested for rhabdomyolysis, acu te kidney injury. History Of Present Illness: The patient is a 48-year-old man with history significant for diabetes m ellitus, hypothyroidism, morbid opacity, obstructive sleep apnea, status post trach creation, hyperte nsion. He was found to have lower extremity ulcer. He is admitted to the hospital after he sustaine d syncope, was found at home unconscious, and workup in the emergency room revealed rhabdomyolysis, o liguria. The patient has Zamora catheter and urine output is improving. The patient received IV norm al saline boluses. He was found to have elevated WBC and hypotension. He is on pressors, felt fatig ue, and he is consulted by union steward due to elevated troponin. Chest x-ray showed some opacities. The patient has significant wounds in the lower extremity and covered with dressing. Review of Systems: Constitutional: Denies fever, chills. He sustained fall at home. He denied PND, orthopnea. He has chronic dyspnea. Cardiovascular: Denies chest pain or palpitation. GI: Denies nausea, vomiting. : Denies dysuria, hematuria. All other systems reviewed and all are negative. Past Medical History: Obesity, hypertension, insulin-dependent diabetes mellitus, congestive heart f ailure, obstructive sleep apnea, status post trach, and lower extremity nonhealing wound. Social History: Denies tobacco and alcohol. Denies caffeine. Physical Examination: General: The patient is awake, alert, and follows commands. Eyes: Anicteric sclerae. EOMI. Neck: Supple. Trach present. Cardiovascular: S1, S2. No pericardial friction or rub. Abdomen: Obese, soft, not tender. Extremities: Swelling present in both legs, chronic dermatitis as well as ulceration and dressing in place. Neurologic: Moving extremities. Cranial nerves intact. Laboratory Data: BUN 41, creatinine 2.7, glucose 104, magnesium 1.8, total bilirubin 0.4. Impression: 1.The patient has sepsis. He presented to the hospital after he sustained fall at home. He was fou nd to have rhabdomyolysis, sepsis, treated with IV antibiotics. The patient has vancomycin for MSSA coverage. The patient is admitted to ICU. He is on IV fluids and vasopressors for blood pressure roberson pport. 2.Syncope due to hypotension triggered by sepsis. The patient is on antibiotics. The patient is un dergoing workup to rule out acute coronary syndrome. The patient was initiated on antibiotics per Pr imary Team. Also, the patient is undergoing workup for possible tremor, embolic phenomenon, non-ST e levation myocardial infarction. Cardiology is consulted. 3.Lower extremity wounding infection. The patient is on antibiotic. He will need debridement. 4.Diabetes mellitus. Continue insulin. 5.Acute kidney injury. Serum creatinine level is elevated up to 2.7. The patient has severe rhabdo myolysis. Urine remained dark. The patient was started on normal saline boluses. Monitor fluid bal ance and continue hydration IV. Monitor CK level. Check levels of phosphorus and magnesium. Plan t o treat hypomagnesemia and hypophosphatemia as needed according to lab results. Monitor calcium leve l. At this point, the patient does not have symptomatic hypocalcemia. 6.Non-ST elevation myocardial infarction per Cardiology. The patient has high risk of acute kidney injury due to IV contrast. Avoid IV contrast. Avoid nephrotoxic medication. AZUL/SABRINA Voice ID: [id number] Report ID: [id number]
[2023-08-08] MEDS ORDERED: NOREPINEPHRINE BITARTRATE/D5W 4 MG/250 ML BAG IV ONE (04:28)
[2023-08-08] MEDS ORDERED: NOREPINEPHRINE 4 MG in D5W 250 ML IV SCH (05:00)
[2023-08-08 05:11] LABS: Absolute Lymphocytes (CBC) 1.4 K/uL (0.7-4.9); Hematocrit 38.9 % (39.6-49.0); Lymphocytes % 5.1 % (15.3-44.8); MCV 82.7 fL (80-100); MPV 8.7 fL (7.6-11.3); Platelets 155 thou/uL (152-406)
[2023-08-08] MEDS ORDERED: NA CHLORIDE 0.9% 1,000 ML ONE (05:37)
[2023-08-08] MEDS: NA CHLORIDE 0.9% 1,000 ML IV SCH ×2 (05:38→15:21)
[2023-08-08 06:00] LABS: Albumin 2.2 g/dL (3.4-5.0); Bilirubin Total 0.9 mg/dL (0.2-1.0); Phosphorus 5.3 mg/dL (2.5-4.9); Potassium 4.5 mEq/L (3.5-5.1); Protein, Total 6.8 g/dL (6.4-8.2)
[2023-08-08 06:05] LABS: Blood Morphology Comment NOT SEEN (NOT SEEN); Platelet Estimate ADEQ
[2023-08-08] MEDS: INSULIN REGULAR (HUMAN) 100 UNIT/ML SQ SCH (07:30)
--- NOTE | 2023-08-08 08:16 | RAD REPORT ---
EXAM DESCRIPTION: US - Renal Ultrasound-Complete - 08/08/2023 12:00 am CLINICAL HISTORY: ronal COMPARISON: RP EXAM COMPLETE dated 07/04/2013 FINDINGS: Limited by body habitus. The right kidney measures 11.8 cm. No hydronephrosis, focal mass or perinephric fluid. The left kidney measures 13.7 cm. No hydronephrosis, focal mass or perinephric fluid. IMPRESSION: No evidence of hydronephrosis. Limited by body habitus.
[2023-08-08] MEDS ORDERED: HYDROCORTISONE SUC 100 MG INJ ONE ×2 (08:41→20:47)
[2023-08-08] MEDS ORDERED: NA CHLORIDE 0.9% 100 ML ONE (08:41)
[2023-08-08] MEDS ORDERED: CEFEPIME 2 GM VIAL ONE (08:41)
[2023-08-08] MEDS: CEFEPIME 2 GM in NA CHLORIDE 0.9% 100 ML IV SCH (08:52)
[2023-08-08] MEDS: ENOXAPARIN 40 MG/0.4 ML SQ SCH (08:53)
[2023-08-08] MEDS: HYDROCORTISONE SUC 100 MG INJ IV SCH ×2 (08:53→21:02)
--- NOTE | 2023-08-08 10:35 | P.PN ---
Subjective Date of Service: 08/08/23 Chief Complaint: Syncope, weakness. Patient states he feels better compared to yesterday. He reports generalized weakness presenting a syncopal episode at home. He states that he sustained lacerations on the plantar surface of the left second, third and fourth toes after the fall. No recorded fever. He remains on low-dose Levophed. He is tolerating diet. Physical Examination - Vital Signs Temperature: 97.2 F Blood Pressure: 109/65 Pulse: 94 Respirations: 22 Pulse Ox (%): 100 - Physical Exam General: Alert, In no apparent distress, Oriented x3, Obese HEENT: Mucous membr. moist/pink Neck: Supple, JVD not distended Respiratory: Clear to auscultation bilaterally, Diminished (Bilateral otherwise clear) Cardiovascular: Regular rate/rhythm, Normal S1 S2, Edema (Bilateral lower extremities) Gastrointestinal: Normal bowel sounds, Soft and benign, No tenderness, Other (Obese abdomen) Musculoskeletal: Swelling (Bilateral legs) Integumentary: Venous stasis ulcer, Other (Bilateral lower extremities venous stasis dermatitis, diffuse scaly lichenified lesions, pronounced on the trunk and lower extremities) Neurological: Normal strength at 5/5 x4 extr, Cranial nerves 3-12 intact - Studies Microbiology Data (last 24 hrs): 08/07/23 02:00 Blood - Blood Gram Stain - Final Assessment And Plan - Plan Sepsis/infected lower extremity wound/septic shock Anaerobic blood culture bottle growing gram-negative rods Septic shock secondary to gram-negative rods bacteremia. Elevated lactate Status post IV fluid bolus started. Wean of Levophed drip as tolerated. IV hydration. Continue broad-spectrum antibiotics-IV cefepime and vancomycin Infectious disease consult. General surgery input regarding lower extremity wound appreciated. Local wound care recommended, no indication for surgical debridement for now. Continue close monitoring in ICU Monitor vitals closely. Syncope: Likely related to hypotension from septic shock. Blood pressure improved on Levophed drip. Wean off Levophed drip. Continue empiric antibiotics. Will obtain imaging study to rule out possible thromboembolic phenomenon once kidney function stabilizes. NSTEMI I suspect elevated troponin is secondary to sepsis. Troponin trended flat Cardiology service to be consulted as necessary. Rhabdomyolysis Likely secondary to fall and sepsis. IV hydration Monitor CK levels. Acute kidney injury Improving, creatinine level is trending down. SOUMYA deemed secondary to hypotensive episode and sepsis Continue IV fluid. Monitor renal function. Morbid obesity Weight loss by diet and exercise recommended. Patient states he is able to ambulate without support and able to drive at baseline. PT consult due to generalized weakness. Hypertension Currently hypotensive needing vasopressors. Hold home antihypertensives. Hypothyroidism Continue home levothyroxine dose. Status post tracheostomy placement Suctioning as needed. Oxygen by trach collar. Chronic anticoagulation use Continue warfarin, monitor PT and INR Chronic atrial fibrillation: Continue amiodarone home dose. DVT Prophylaxis: Warfarin. Disposition: Pending clinical response to treatments and PT evaluations.
[2023-08-08 12:08] LABS: Magnesium 2.1 mg/dL (1.6-2.4); Phosphorus 4.3 mg/dL (2.5-4.9)
--- NOTE | 2023-08-08 12:13 | P.PN ---
Subjective Date of Service: 08/08/23 Chief Complaint: Shock Subjective: Improving (Patient is improving on low doses of Levophed has extensive psoriasis) Review of Systems 10-point ROS is otherwise unremarkable General: Weakness Physical Examination - Vital Signs Temperature: 97.2 F Blood Pressure: 96/77 Pulse: 96 Respirations: 21 Pulse Ox (%): 96 - Physical Exam General: Alert, Oriented x3 Neck: Supple Respiratory: Clear to auscultation bilaterally, Diminished Cardiovascular: Regular rate/rhythm, Edema - Studies Microbiology Data (last 24 hrs): 08/07/23 02:00 Blood - Blood Gram Stain - Final Assessment And Plan - Current Problems (Diagnosis) (1) Syncope Current Visit: Yes Status: Acute Plan: Patient admitted with a syncopal attack is a low blood pressure on low doses of Levophed we will try to wean off with fluid boluses renal function is improving labs reviewed white count is still elevated overall ejection fraction is normal (2) Psoriasis Current Visit: Yes Status: Acute Plan: Apply clobetasol topical steroid - Plan Patient has extensive psoriasis and will need treatment
[2023-08-08] MEDS: CLOBETASOL 0.05 % CREAM 15GM TOP SCH ×2 (13:07→21:00)
[2023-08-08 15:28] VITALS: BMI 68.9
--- NOTE | 2023-08-08 15:30 | PN ---
Date of Progress Note: 08/08/2023 Subjective: Patient was admitted to the hospital with septic shock, acute kidney injury. Patient hill d fluid resuscitation with LR. Patient had psoriasis. Patient has been having good urine output. K idney function, slight improvement. No obstructive uropathy. Physical Examination: Vital Signs: When I saw the patient, blood pressure 110/55, pulse of 95, afebrile. Chest: Decreased entry bilateral base. Heart: S1, S2. Systolic murmur. Abdomen: Morbidly obese. Could not appreciate any organomegaly. Extremities: +1 edema. Venous stasis change bilateral. Skin: Psoriasis rash on both lower extremity and abdomen. Neuro: Alert. No focality. Neck: Patient had a trach. Laboratory Data: Sodium 139, potassium 4.5, bicarb 26, BUN 37, creatinine 2.2, calcium 8.4. Phospho jassi 5.3. AST 400, ALT 67. Albumin 2.2. Hemoglobin 12.6. Urinalysis, hematuria more than 50. Sero logy is still pending. Vancomycin trough is still pending. Chest x-ray, cardiomegaly with congestio n. Renal ultrasound, obstructive uropathy has been ruled out. No hydronephrosis. 11.8/13.7. Current Medications: The patient is on include: 1.Cefepime. 2.Vancomycin. 3.Levophed has been discontinued. 4.Hydrocortisone 50 b.i.d. 5.Levothyroxine. Assessment And Plan: 1.Acute kidney injury secondary to prerenal, poor perfusion, acute tubular necrosis/toxic acute tubu lar necrosis secondary to sepsis, nonoliguric. No hyperkalemia or acidosis. I do not see the need t o initiate any renal replacement therapy. Patient is going to continue on the fluid resuscitation gi antoinette the marginal low blood pressure for the time being and we will monitor the patient. We will keep holding Lasix and spironolactone with metoprolol for the time being and we will follow up. 2.Hypertension, currently blood pressure on the lower side, on septic shock. Just weaned from press or with the presence of acute kidney injury. Hold all blood pressure medication. 3.Cellulitis. Continue current antibiotic. Follow up with primary. 4.Septic shock. Continue current antibiotic. Follow up vancomycin trough. ELIANA/PARISAL Voice ID: [id number] Report ID: [id number]
[2023-08-08] MEDS ORDERED: VANCOMYCIN 1.75 GM in NA CHLORIDE 0.9% 500 ML IVPB SCH ×2 (17:00→18:00)
[2023-08-09] MEDS: NA CHLORIDE 0.9% 1,000 ML IV SCH (01:22)
[2023-08-09] MEDS ORDERED: NA CHLORIDE 0.9% 1,000 ML ONE (01:30)
[2023-08-09 05:30] LABS: Absolute Lymphocytes (CBC) 1.5 K/uL (0.7-4.9); Hematocrit 36.1 % (39.6-49.0); Lymphocytes % 7.9 % (15.3-44.8); MCV 82.7 fL (80-100); MPV 9.1 fL (7.6-11.3); Platelets 111 thou/uL (152-406); RBC Red Blood Cell Count 4.37 M/uL (4.33-5.43)
[2023-08-09 06:12] LABS: Albumin 2.1 g/dL (3.4-5.0); Phosphorus 3.5 mg/dL (2.5-4.9); Potassium 4.5 mEq/L (3.5-5.1)
[2023-08-09] MEDS: LEVOTHYROXINE SOD 0.1 MG TAB PO SCH (06:44)
[2023-08-09] MEDS: LEVOTHYROXINE SOD 0.075 MG TAB PO SCH (06:44)
[2023-08-09] MEDS ORDERED: HOME MED 1 EA UNK (Levothyroxine Sodium [Levothyroxine Sodium] 175 MCG Tablet) PO SCH (09:00)
[2023-08-09] MEDS: CLOBETASOL 0.05 % CREAM 15GM TOP SCH ×2 (09:00→20:00)
[2023-08-09] MEDS ORDERED: CEFEPIME 2 GM VIAL ONE (09:05)
[2023-08-09] MEDS ORDERED: HYDROCORTISONE SUC 100 MG INJ ONE (09:05)
[2023-08-09] MEDS ORDERED: NA CHLORIDE 0.9% 100 ML ONE (09:06)
[2023-08-09] MEDS: ENOXAPARIN 40 MG/0.4 ML SQ SCH (09:09)
[2023-08-09] MEDS: CEFEPIME 2 GM in NA CHLORIDE 0.9% 100 ML IV SCH (09:10)
[2023-08-09] MEDS: HYDROCORTISONE SUC 100 MG INJ IV SCH (09:10)
[2023-08-09 09:53] LABS: Blood Morphology Comment NOT SEEN (NOT SEEN); Platelet Estimate DECR; White Blood Cell Scan OK (OK)
--- NOTE | 2023-08-09 12:18 | P.PN ---
Subjective Date of Service: 08/09/23 Chief Complaint: Gram-negative bacteremia Subjective: Improving (Patient is improving doing well he is off vasopressors) Review of Systems Unremarkable General: Weakness Physical Examination - Vital Signs Temperature: 97.6 F Blood Pressure: 126/77 Pulse: 82 Respirations: 20 Pulse Ox (%): 93 - Physical Exam General: Alert, Oriented x3 Neck: Supple Respiratory: Clear to auscultation bilaterally, Diminished - Studies Microbiology Data (last 24 hrs): 08/07/23 02:00 Blood - Blood Gram Stain - Final Assessment And Plan - Current Problems (Diagnosis) (1) Psoriasis Current Visit: Yes Status: Acute Plan: Apply clobetasol topical steroid (2) Gram-negative bacteremia Current Visit: Yes Status: Acute Plan: Patient admitted with gram-negative bacteremia 1 blood culture is only positive ID is pending he is doing very well off vasopressors patient's renal function has improved can DC vancomycin continue with cefepime - Plan Patient has extensive psoriasis and will need treatment started on steroid cream
--- NOTE | 2023-08-09 12:20 | PN ---
Date of Progress Note: 08/09/2023 Subjective: Patient was admitted with septic shock with acute kidney injury secondary to poor perfus ion ATN, toxic ATN. Patient had fluid resuscitation and pressor. Kidney function started recovering , nonoliguric. The patient weaned from the pressor yesterday. Objective: Vital Signs: Blood pressure 124/70, pulse of 84, afebrile. Chest: Clear to auscultation. Heart: S1, S2. Regular. Abdomen: Morbidly obese. Could not appreciate any organomegaly. Extremities: Venous stasis change plus edema. Neurologic: Alert. No focality. Patient bedbound. Patient had tracheostomy for COPD. The patient had urine output of 4300, even balance. Laboratory Data: Hemoglobin 11.5, WBC 18, trending down. Sodium 140, potassium 4.5, bicarb 28, BUN 29, creatinine down to 1.4, GFR of 60, calcium 8.3, phosphorus 3.5, CK 2000, albumin 2.1, corrected c alcium is 9.9. Current Medications: The patient on, includes: 1.Cefepime. 2.Vancomycin. 3.Lovenox. 4.Levothyroxine. Assessment And Plan: 1.Acute kidney injury secondary to poor perfusion ATN, toxic ATN, on the recovery phase, looked to m e normal volume. I am going to go ahead and discontinue IV fluid. We will monitor the patient. 2.Hypertension, controlled, optimal, off blood pressure medication, off pressor. Discontinue IV flu id. We will monitor. 3.Hyponatremia, resolved. 4.Rhabdomyolysis secondary to fall. Kidney function improving. CK trending down. Discontinue IV f luid. 5.Mqx-JU-rwhidplim myocardial infarction, as by Cardiology and Primary. 6.Shock, multifactorial, secondary to cardiac/hypovolemic/sepsis. Septic shock. Continue current a ntibiotic. Follow up culture. Follow up with Cardiology. ELIANA/SABRINA Voice ID: [id number] Report ID: [id number]
--- NOTE | 2023-08-09 13:07 | P.PN ---
Subjective Date of Service: 08/09/23 Chief Complaint: Gram-negative bacteremia No issues overnight. Patient is tolerating diet. Levophed drip weaned off. No recorded fever. Physical Examination - Vital Signs Temperature: 97.6 F Blood Pressure: 126/77 Pulse: 82 Respirations: 20 Pulse Ox (%): 93 - Studies Microbiology Data (last 24 hrs): 08/07/23 02:00 Blood - Blood Gram Stain - Final Assessment And Plan - Plan Physical exam General: Alert and oriented x3, NAD, morbidly obese. HEENT: Conjunctiva not pale, anicteric sclera Neck: Supple, no elevated JVD Heart: Heart sounds 1 and 2 normal, regular rhythm, normal rate, bilateral lower extremity edema. Lungs: Clear to auscultation bilaterally, adequate breath sounds bilaterally, no rhonchi or crackles. Abdomen: Soft, nondistended, nontender, normal bowel sounds. Extremities: No tenderness, no deformity Skin: Bilateral lower extremity venous stasis dermatitis and xerosis, diffuse scaly rash with lichenification-more pronounced on the trunk and bilateral lower extremities. Neuro: No focal motor deficit. Normal speech. Psychiatry: Normal mood, no agitation. Plan: Sepsis/infected lower extremity wound/septic shock Anaerobic blood culture bottle growing gram stain-negative mono blood cultures showed no growth. Status post IV fluid bolus. Off Levophed drip. Patient with a history of congestive heart failure. IV fluid discontinued Diet as tolerated. Continue broad-spectrum antibiotics-IV cefepime and vancomycin Infectious disease consulted General surgery input regarding lower extremity wound appreciated. Local wound care recommended, no indication for surgical debridement for now. Transfer to the general medical floor. Syncope: Likely related to hypotension from septic shock. Blood pressure improved on Levophed drip. Off Levophed Continue empiric antibiotics. Will obtain imaging study to rule out possible thromboembolic phenomenon once kidney function stabilizes. NSTEMI I suspect elevated troponin is secondary to sepsis. Troponin trended flat Cardiology service to be consulted as necessary. Rhabdomyolysis Likely secondary to fall and sepsis. IV hydration Monitor CK levels. Acute kidney injury Improving, creatinine level is trended down significantly. SOUMYA deemed secondary to hypotensive episode and sepsis IV fluid discontinued. Encourage oral rehydration. Monitor renal function. Morbid obesity Weight loss by diet and exercise recommended. Patient states he is able to ambulate without support and able to drive at baseline. PT consulted due to generalized weakness. Hypertension Hold home antihypertensives. Given hypotensive episode. Hypothyroidism Continue home levothyroxine dose. Status post tracheostomy placement Suctioning as needed. Oxygen by trach collar. Chronic anticoagulation use Start Eliquis. Chronic atrial fibrillation: Continue amiodarone home dose. DVT Prophylaxis: Warfarin. Disposition: Pending clinical response to treatments and PT evaluations.
[2023-08-09] MEDS: APIXABAN 5 MG TABLET PO SCH (20:00)
[2023-08-10 03:55] LABS: Absolute Lymphocytes (CBC) 2.4 K/uL (0.7-4.9); Hematocrit 37.2 % (39.6-49.0); Lymphocytes % 16.6 % (15.3-44.8); MCV 82.6 fL (80-100); MPV 8.8 fL (7.6-11.3); Platelets 114 thou/uL (152-406)
[2023-08-10 04:06] LABS: Albumin 2.2 g/dL (3.4-5.0); Phosphorus 3.1 mg/dL (2.5-4.9); Potassium 4.2 mEq/L (3.5-5.1)
[2023-08-10] MEDS: LEVOTHYROXINE SOD 0.1 MG TAB PO SCH (06:33)
[2023-08-10] MEDS: LEVOTHYROXINE SOD 0.075 MG TAB PO SCH (06:33)
--- NOTE | 2023-08-10 09:22 | P.CNS ---
Date of Consult: 08/10/23 Reason for Consult: sepsis Requesting Physician: gama cheek Chief Complaint: Gram-negative bacteremia History of Present Illness: Patient is a 48 yo male with a PMH of diabetes mellitus type II, hypothyroidism, morbid obesity, hypertension, chronic trach who presented to the ED via EMS after being found down at home. Blood and urine cultures obtained. Patient was admitted for sepsis secondary to urinary tract infection. Urine cultures resulting with E.coli ESBL. Infectious disease was consulted. Allergies No Known Allergies Allergy (Verified 06/17/13 20:12) Home medications list reviewed: Yes Home Medications: Spironolactone [Aldactone*] 50 mg PO DAILY #30 tab 07/29/13 Metoprolol Tartrate [Lopressor*] 50 mg PO BID 08/21/13 Furosemide [Lasix*] 40 mg PO DAILY #30 tab 08/30/13 Levothyroxine Sodium 175 mcg PO DAILY 08/07/23 - Past Medical/Surgical History Diabetic: No -: htn -: sleep apnea -: CHF -: trach insertion - Family History Mother Medical History: Heart disease - Social History Smoking Status: Former smoker Alcohol use: No CD- Drugs: No Caffeine use: Yes Place of Residence: Home Review of Systems 10-point ROS is otherwise unremarkable ENT: Other (chronic trach) Musculoskeletal: Foot Pain (left foot) Physical Examination Temp Pulse Resp BP Pulse Ox 97.8 F 74 20 156/83 H 92 08/10/23 04:00 08/10/23 04:00 08/10/23 04:00 08/10/23 04:00 08/10/23 04:00 General: Alert, In no apparent distress, Oriented x3, Obese HEENT: Normocephalic, Sclerae nonicteric Neck: Other (tracheostomy) Respiratory: Diminished, Other (unlabored respirations. trach on room air) Cardiovascular: Regular rate/rhythm, Edema (BLE) Gastrointestinal: Normal bowel sounds, No tenderness Integumentary: Other (left foot laceration and left 5th toe fracture, dressing clean dry and intact. Onychomycosis.) Neurological: Normal speech, Normal tone, Normal affect Laboratory Data - Reviewed Microbiology Data - Reviewed Imagings Data: - Reviewed Conclusions/Impression: Problem List Septic shock secondary E.coli Bacteremia/acute urinary tract infection NSTEMI Acute Kidney Injury Rhabdomyolysis Fracture of left fifth toe Diabetes Mellitus type II Morbid Obesity Hypothyroidism Hypertension Tracheostomy Septic Shock secondary to E.coli Bacteremia / acute urinary tract infection - Blood cultures 08/07: Escherichia coli ESBL in 1 of 4 bottles - urine culture 08/07: gram-negative rods - Renal ultrasound 08/08: " No evidence of hydronephrosis. Limited by body habitus." - Currently On Cefepime (started 08/07) WBC curve trending down (27.6 -> 18.9 -> 14.6) Afebrile Fracture of Left 5th Toe Laceration of left plantar surface 2nd-4th metatarsal phalangeal joint - orthopedic following - wound care per ortho/wound care team Recommendations - Bacteremia: Recommend starting on Meropenem IV given ESBL organism. Discontinue Cefepime. - Monitor WBC and fever trends - left foot wound care per wound care team / ortho - Strict blood glucose control - Pressure offloading measures. Bariatric bed. Case discussed with Donaldo Gomez
[2023-08-10] MEDS: APIXABAN 5 MG TABLET PO SCH ×2 (09:37→20:08)
[2023-08-10] MEDS: CLOBETASOL 0.05 % CREAM 15GM TOP SCH ×2 (09:37→20:09)
[2023-08-10] MEDS: Meropenem 1,000 MG in NA CHLORIDE 0.9% 100 ML IV SCH ×2 (09:38→18:20)
--- NOTE | 2023-08-10 15:39 | P.DS ---
Admission Date: 08/07/23 Discharge Date: 08/10/23 Disposition: [facility] Discharge Condition: FAIR Reason for Admission: Gram-negative bacteremia Brief History of Present Illness: 48-year-old male patient with medical history significant for type 2 diabetes, hypothyroidism, morbid obesity, hypertension and with status post tracheostomy for respiratory failure who was found down at home unconscious and covered with excrement. He reported that he went to the bathroom and suddenly collapsed. He could not tell events that happened around the time of collapse but he denied shortness of breath or chest pain. In the ED, initial imaging did not show significant finding however he had elevated creatinine of 2.4 and elevated white cell of 13,000. He was deemed to be in septic condition as he had low blood pressure and was given IV fluid boluses. Broad-spectrum antibiotics were started after cultures were taken. He was also found to have wounds in the lower extremities. Patient was hospitalized for further management. Hospital Course: Sepsis/infected lower extremity wound/septic shock Status post IV fluid bolus and IV fluid Status post Levophed drip. Blood culture grew ESBL E. coli. Initially on IV cefepime and vancomycin. Antibiotics changed to IV meropenem. Clinically improved, hypotension resolved, patient became hypertensive Infectious disease evaluated patient and assisted with management General surgery Dr. Rangel evaluated patient regarding lower extremity wound and recommended local wound care, no need for surgical debridement at this time. Patient is independent at baseline Patient is generally weak, evaluated for PT. Further PT recommended. Syncope: Likely related to hypotension from septic shock. Blood pressure improved on Levophed drip. Levophed drip discontinued. Patient treated with antibiotics as above. NSTEMI I suspect elevated troponin is secondary to sepsis. Troponin trended flat Rhabdomyolysis Likely secondary to fall and sepsis. CK levels improved significantly with IV hydration. Acute kidney injury Improving, creatinine level has trended down significantly. SOUMYA deemed secondary to hypotensive episode and sepsis Morbid obesity Weight loss by diet and exercise recommended. Patient states he is able to ambulate without support and able to drive at baseline. Ongoing PT needed. Hypertension Hoed home antihypertensives due to hypotension. Blood pressure has improved, antihypertensives resumed on discharge. Hypothyroidism Continued home levothyroxine dose. Status post tracheostomy placement Suctioning as needed. Oxygen by trach collar. Chronic anticoagulation use Replaced warfarin with Eliquis. Chronic atrial fibrillation: Continued amiodarone home dose. Psoriasis On topical clobetasol. Further treatment as outpatient. Vital Signs/Physical Exam: Temp Pulse Resp BP Pulse Ox 97.8 F 74 20 156/83 H 92 08/10/23 04:00 08/10/23 04:00 08/10/23 04:00 08/10/23 04:00 08/10/23 04:00 General: Alert, In no apparent distress, Oriented x3, Obese HEENT: Mucous membr. moist/pink Neck: JVD not distended Respiratory: Clear to auscultation bilaterally, Diminished (Bilateral) Cardiovascular: Normal S1 S2, Edema (Lower extremities), Irregular heart rate/rhythm Gastrointestinal: Normal bowel sounds, Soft and benign, Non-distended, Other (Obese abdomen) Musculoskeletal: Swelling (Bilateral lower extremities) Integumentary: Other (Bilateral lower extremity venous stasis dermatitis, xerosis, diffuse scaly rash with lichenification) Neurological: Normal speech, Normal strength at 5/5 x4 extr Laboratory Data at Discharge: WBC 14.60 thou/uL (4.3-10.9) H 08/10/23 03:28 Hgb 12.0 g/dL (13.6-17.9) L 08/10/23 03:28 Hct 37.2 % (39.6-49.0) L 08/10/23 03:28 Plt Count 114 thou/uL (152-406) L 08/10/23 03:28 PT 15.3 SECONDS (9.5-12.5) H 08/06/23 23:34 INR 1.40 08/06/23 23:34 APTT 37.8 SECONDS (24.3-36.9) H 08/06/23 23:34 Sodium 140 mEq/L (136-145) 08/10/23 03:28 Potassium 4.2 mEq/L (3.5-5.1) 08/10/23 03:28 BUN 25 mg/dL (7-18) H 08/10/23 03:28 Creatinine 1.34 mg/dL (0.70-1.30) H 08/10/23 03:28 Glucose 81 mg/dL (74-106) 08/10/23 03:28 Phosphorus 3.1 mg/dL (2.5-4.9) 08/10/23 03:28 Magnesium 2.1 mg/dL (1.6-2.4) 08/08/23 11:25 Total Bilirubin 0.9 mg/dL (0.2-1.0) 08/08/23 04:40 AST 400 U/L (15-37) H 08/08/23 04:40 ALT 67 U/L (16-61) H 08/08/23 04:40 Alkaline Phosphatase 84 U/L (45-117) D 08/08/23 04:40 Home Medications: Spironolactone [Aldactone*] 50 mg PO DAILY #30 tab 07/29/13 Metoprolol Tartrate [Lopressor*] 50 mg PO BID 08/21/13 Furosemide [Lasix*] 40 mg PO DAILY #30 tab 08/30/13 Levothyroxine Sodium 175 mcg PO DAILY 08/07/23 Apixaban [Eliquis] 5 mg PO BID 08/10/23 Clobetasol [Temovate Cream 0.05%*] 1 appl TOP BID tube 08/10/23 Meropenem [Merrem 1 GM/100 ML NS IVPB] 1 gm IV Q8H #42 vial 08/10/23 New Medications: Meropenem [Merrem 1 GM/100 ML NS IVPB] 1 gm IV Q8H #42 vial Physician Discharge Instructions: You were admitted for generalized weakness. You are found to have low blood pressure. Your low blood pressure was treated with IV fluid and IV medications to keep your blood pressure up. You were treated with aggressive IV antibiotics. You responded well to treatment. Your blood pressure improved to the point you became hypertensive. Your blood culture grew resistant bacteria called ESBL E. coli which requires treatment with IV meropenem for at least 2 weeks. The infectious disease specialist evaluated you and recommended antibiotic treatment. You have been accepted to [facility] to continue subacute care. Followup: Marcela Fields NP [Primary Care Provider] - 1-2 Weeks Time spent managing pt's care (in minutes): 36
[2023-08-10] MEDS ORDERED: Meropenem 1,000 MG in NA CHLORIDE 0.9% 100 ML IV SCH (17:00)
[2023-08-10 21:22] VITALS: BP 147/70; TEMP 97.8
--- NOTE | 2023-08-10 22:54 | PN ---
Date of Progress Note: 08/10/2023 Chief Complaint: Acute on chronic kidney injury. Subjective: The patient is admitted with septic shock, acute kidney injury secondary to renal hypope rfusion, and acute tubular necrosis in the setting of hypotension and sepsis. The patient received I V fluids for volume resuscitation along with pressors. Kidney function has improved. The patient hill s nonoliguric urine output. Review of Systems: Denies chest pain, palpitation. Physical Examination: Lungs: Clear to auscultation bilaterally. Heart: S1, S2. Abdomen: Soft, benign. Extremities: Slight edema. Neck: The patient has tracheostomy for COPD. Impression And Plan: 1.Acute kidney injury secondary to acute tubular necrosis. Renal function is improving. IV fluids completed. Continue p.o. hydration as tolerated. Monitor fluid balance. 2.Hyponatremia, resolved. 3.Rhabdomyolysis. While the patient developed rhabdomyolysis secondary to fall, CK level is improvi ng. IV fluids were stopped. 4.Septic shock. The patient is on antibiotics. The patient had severe hypotension due to hypovolem ia and sepsis. Currently, he is euvolemic. Monitor fluid balance. Continue adequate hydration. EB/MODL Voice ID: [id number] Report ID: [id number]
[2023-08-11 00:18] VITALS: O2SAT 93
== END 2023-08-11 00:15 | DRG 871 ==
LOC: ER 21:30 → 2ND 08-07 02:08 → 3RD-ICU 08-07 03:30 → 4TH 08-09 21:14
PROVIDERS: ADMIT Internal Medicine Nephrology; ATTEND Internal Medicine
PROC: 02HV33Z Insertion of Infusion Device into Superior Vena Cava, Percutaneous Approach (ICD-10-PCS; principal; 2023-08-07)
PROC: 3E043XZ Introduction of Vasopressor into Central Vein, Percutaneous Approach (ICD-10-PCS; 2023-08-07)
DX: A41.51 Sepsis due to Escherichia coli [E. coli] (principal); I21.A1 Myocardial infarction type 2; R65.21 Severe sepsis with septic shock; N17.0 Acute kidney failure with tubular necrosis; Z68.44 Body mass index [BMI] 60.0-69.9, adult; I48.20 Chronic atrial fibrillation, unspecified; J96.10 Chronic respiratory failure, unspecified whether with hypoxia or hypercapnia; M62.82 Rhabdomyolysis; E87.1 Hypo-osmolality and hyponatremia; N39.0 Urinary tract infection, site not specified; Z16.12 Extended spectrum beta lactamase (ESBL) resistance; E66.01 Morbid (severe) obesity due to excess calories; E03.9 Hypothyroidism, unspecified; I87.8 Other specified disorders of veins; E11.9 Type 2 diabetes mellitus without complications; E86.0 Dehydration; I10 Essential (primary) hypertension; L40.9 Psoriasis, unspecified; S92.912A Unspecified fracture of left toe(s), initial encounter for closed fracture; Z93.0 Tracheostomy status; Z79.01 Long term (current) use of anticoagulants; Z79.82 Long term (current) use of aspirin; Z74.01 Bed confinement status; Z79.890 Hormone replacement therapy; Z79.899 Other long term (current) drug therapy; Z28.310 Unvaccinated for COVID-19; Z87.891 Personal history of nicotine dependence; W18.30XA Fall on same level, unspecified, initial encounter; Y92.012 Bathroom of single-family (private) house as the place of occurrence of the external cause; Y93.89 Activity, other specified; Y99.9 Unspecified external cause status
CPT/HCPCS: 36415; 71045; 76770; 80048; 80053; 80069; 80076; 80202; 81001; 82550; 82947; 83605; 83735; 83880; 84100; 84443; 84484; 85025; 85027; 85610; 85730; 86021; 87040; 87077; 87086; 87088; 87186; 87205; 93005; 93306; 93970; 96361; 96365; 96375; 97116; 97161; 97530; 99285; J0692; J0696; J1650; J1720; J2185; J2405; J7030; J7040; J7050; J7060; J7120; Q2035